=== PATIENT | female | born 1945 | race Caucasian/White ===

== ENCOUNTER → 2020-03-18 12:29 | Outpatient (CLI) | payer MEDICARE, SELFPAY ==
--- NOTE | ~2020-03-18 | XR_ITS ---
XR finger 1st RT min 2V DATE: 03/18/2020 12:39 INDICATION: Pain TECHNIQUE: 3 views COMPARISON: None FINDINGS: There is osteoarthritic change at the first carpometacarpal, metacarpophalangeal and interp halangeal joints. No fracture, dislocation, periosteal reaction or bone destruction. IMPRESSION: Polyarticular osteoarthritis Reviewed, dictated and finalized at location A.
== END ==
PROVIDERS: PCP Nurse Practitioner; Visit Provider Nurse Practitioner
DX: M79.646 Pain in unspecified finger(s) (principal); M19.041 Primary osteoarthritis, right hand
CPT/HCPCS: 73140

== ENCOUNTER → 2021-02-01 13:26 | Outpatient (CLI) | payer MEDICARE, SELFPAY ==
--- NOTE | ~2021-02-01 | MM_ITS ---
EXAMINATION: MM screening [facility] BI w trisha HISTORY: Screening mammogram TECHNIQUE: Craniocaudal and mediolateral oblique 3-D tomosynthesis images were obtained and synthetic 2-D images were generated. CAD analysis was submitted and interpreted. COMPARISON: No prior mammogram is available for comparison at this institution. BREAST PARENCHYMAL COMPOSITION: There are scattered areas of fibroglandular density. FINDINGS: Stable upper outer quadrant posterior right intramammary lymph node and bilateral axillary tail small benign-appearing lymph nodes. Scattered benign calcifications. There is no evidence of gonzalez picious mass, calcification, or architectural distortion to suggest malignancy in either breast. Ther e has been no suspicious interval change. IMPRESSION: 1. No mammographic evidence of malignancy. 2. Recommend routine screening mammography in one year. BI-RADS Category 2: Benign finding(s). Reviewed, dictated and finalized at location A.
== END ==
PROVIDERS: PCP Nurse Practitioner; Visit Provider Nurse Practitioner
DX: Z12.31 Encounter for screening mammogram for malignant neoplasm of breast (principal)
CPT/HCPCS: 77063; 77067

== ENCOUNTER → 2021-04-26 12:16 | Outpatient (CLI) | payer MEDICARE, SELFPAY ==
--- NOTE | ~2021-04-26 | DEXA_ITS ---
Bone Density Report Name: Demetria Burt I Age: 75 Sex: Female Ethnicity: White Date of : 1945 Indication: postmenopausal; screening for osteoporosis; hysterectomy; Referring Provider: Katia Medina Study: Bone densitometry was performed. Exam Date: April 26, 2021 Accession number: [id number] Bone Density: Region BMD T-score Z-score Classification AP Spine (L1-L4) 1.187 1.3 3.6 Normal Femoral Neck (Left) 0.805 -0.4 1.6 Normal Total Hip (Left) 1.117 1.4 3.1 Normal Femoral Neck (Right) 0.822 -0.2 1.8 Normal Total Hip (Right) 0.975 0.3 2.0 Normal Total Hip Mean 1.046 0.9 2.6 Normal World Health Organization criteria for BMD impression classify patients as: Normal (T-score at or above -1.0), Osteopenia (T-score between -1.0 and -2.5), or Osteoporosis (T-score at or below -2.5). 10-year Fracture Risk: FRAX not reported because: All T-scores for Spine Total, Hip Total, Femoral Neck at or above -1.0 Previous Exams: Region Exam Age BMD T-score BMD Change BMD Change Date g/cm2 vs Baseline vs Previous AP Spine(L1-L4) 04/26/2021 75 1.187 1.3 0.018 0.052* 07/26/2014 68 1.135 0.8 -0.034* -0.029* 07/25/2012 66 1.164 1.1 -0.005 0.116* 06/07/2010 64 1.048 0.0 -0.121* 0.002 06/04/2008 62 1.046 0.0 -0.123* -0.123* 01/19/2005 59 1.169 1.1 Total Hip(Left) 04/26/2021 75 1.117 1.4 0.033* 0.047* 03/04/2019 73 1.070 1.0 -0.014 -0.035* 07/26/2014 68 1.105 1.3 0.021 0.038* 07/25/2012 66 1.067 1.0 -0.017 0.066* 06/07/2010 64 1.001 0.5 -0.083* -0.039* 06/04/2008 62 1.040 0.8 -0.044* -0.044* 01/19/2005 59 1.084 1.2 Total Hip(Right) 04/26/2021 75 0.975 0.3 -0.086* -0.021 03/04/2019 73 0.996 0.4 -0.065* -0.056* 07/26/2014 68 1.051 0.9 -0.009 0.064* 07/25/2012 66 0.988 0.4 -0.073* 0.026 06/07/2010 64 0.962 0.2 -0.099* -0.054* 06/04/2008 62 1.016 0.6 -0.044* -0.044* 01/19/2005 59 1.060 1.0 *Denotes significance at 95% confidence level, LSC for AP Spine = 0.022 g/cm2, LSC for Total Hip = 0.027 g/cm2 Clinical Information Provided by Patient: Has used the following medications: Vitamin D Has the following medical cond
== END ==
PROVIDERS: PCP Nurse Practitioner; Visit Provider Nurse Practitioner
DX: Z78.0 Asymptomatic menopausal state (principal)
CPT/HCPCS: 77080

== ENCOUNTER 2022-04-04 08:59 | Outpatient (CLI) | payer MEDICARE, SELFPAY ==
--- NOTE | ~2022-04-04 | MM_ITS ---
EXAMINATION: MM screening [facility] BI w trisha HISTORY: Screening TECHNIQUE: Craniocaudal and mediolateral oblique 3-D tomosynthesis images were obtained and synthetic 2-D images were generated. CAD analysis was submitted and interpreted. COMPARISON: Comparison to multiple prior studies sequentially, with oldest reviewed study dated 07/12. BREAST PARENCHYMAL COMPOSITION: There are scattered areas of fibroglandular density. FINDINGS: There is no evidence of suspicious mass, calcification, or architectural distortion to sugg est malignancy in either breast. There has been no suspicious interval change. IMPRESSION: 1. No mammographic evidence of malignancy. 2. Recommend routine screening mammography in one year. BI-RADS Category 1: Negative Reviewed, dictated and finalized at location A.
== END 2022-04-04 09:00 | disposition home or self-care (01) ==
PROVIDERS: PCP Nurse Practitioner; Visit Provider Nurse Practitioner
DX: Z12.31 Encounter for screening mammogram for malignant neoplasm of breast (principal)
CPT/HCPCS: 77063; 77067

== ENCOUNTER 2023-02-20 13:51 | Outpatient (CLI) | payer MEDICARE, SELFPAY ==
[2023-02-20 19:17] LABS: Thyroid Stimulating Hormone Reflex 0.034 uIU/mL (0.465-4.68)
[2023-02-20 19:42] LABS: Free T4 Free Thyroxine Reflex 1.03 ng/dL (0.78-2.19)
== END 2023-02-20 13:52 | disposition home or self-care (01) ==
LOC: ANHGOSHLAB 13:56
PROVIDERS: PCP Family Medicine; Visit Provider Nurse Practitioner Family
DX: R53.83 Other fatigue (principal)
CPT/HCPCS: 36415; 84439; 84443; 84480

== ENCOUNTER 2023-04-10 08:13 | Outpatient (CLI) | payer MEDICARE, SELFPAY ==
--- NOTE | ~2023-04-10 | MM_ITS ---
EXAMINATION: MM screening [facility] BI w trisha HISTORY: Screening mammogram, family history of breast cancer in her sister. TECHNIQUE: Craniocaudal and mediolateral oblique 3-D tomosynthesis images were obtained and synthetic 2-D images were generated. CAD analysis was submitted and interpreted. COMPARISON: 04/04/2022, 02/01/2021, 03/04/2019 BREAST PARENCHYMAL COMPOSITION: There are scattered areas of fibroglandular density. FINDINGS: A stable mass in the upper outer quadrant of the right breast likely reflects an intramamma ry lymph node and is considered benign given the lack of interval change. No suspicious mass, calcifi cation, or architectural distortion are identified in either breast to suggest malignancy. There has been no suspicious interval change. IMPRESSION: 1. No mammographic evidence of malignancy. 2. Recommend routine screening mammography in one year. BI-RADS Category 2: Benign finding(s). Reviewed, dictated and finalized at location A.
== END 2023-04-10 08:14 | disposition home or self-care (01) ==
LOC: ANHIMG 08:16
PROVIDERS: PCP Family Medicine; Visit Provider Nurse Practitioner Family
DX: Z12.31 Encounter for screening mammogram for malignant neoplasm of breast (principal)
CPT/HCPCS: 77063; 77067

== ENCOUNTER 2023-04-24 14:29 | Outpatient (CLI) | payer MEDICARE, SELFPAY ==
--- NOTE | ~2023-04-24 | US_ITS ---
EXAMINATION: US thyroid DATE: 04/24/2023 15:11 INDICATION: Type 2 diabetes mellitus without complications. TECHNIQUE: Multiple ultrasound images of the thyroid were obtained. COMPARISON: None. FINDINGS: The right thyroid lobe measures 4.1 x 1.6 x 2.0 cm. The left thyroid lobe measures 4.0 x 2.4 x 1.8 c m. In the right thyroid lobe, there is an 11 mm solid, hypoechoic, wider than tall nodule with irreg ular margin without echogenic foci (TI-RADS TR4). In the right lower lobe, there is a 9 mm solid, hyp oechoic, wider than tall nodule with smooth margin without echogenic foci (TR4). In the left thyroid lobe, there is a 17 mm solid, hypoechoic, wider than tall nodule with smooth margin without echogenic foci (TR4). There are multiple subcentimeter nodules in the thyroid. IMPRESSION: 1. Multinodular goiter. Ultrasound-guided fine-needle aspiration of the 17 mm left thyroid nodule is recommended. Reviewed, dictated and finalized at location A. IMPRESSION: 1. Multinodular goiter. Ultrasound-guided fine-needle aspiration of the 17 mm l eft thyroid nodule is recommended.
== END 2023-04-24 14:30 | disposition home or self-care (01) ==
LOC: ANHIMG 14:33
PROVIDERS: PCP Family Medicine; Visit Provider Internal Medicine
DX: E11.9 Type 2 diabetes mellitus without complications (principal); E04.2 Nontoxic multinodular goiter
CPT/HCPCS: 76536

== ENCOUNTER 2023-05-08 12:37 | Outpatient (CLI) | payer MEDICARE, SELFPAY ==
--- NOTE | ~2023-05-08 | US_ITS ---
EXAMINATION: US FNA w image guidance, US FNA additional DATE: 05/08/2023 13:54 INDICATION: Bilateral thyroid nodules TECHNIQUE: A time-out was performed to verify the patient's name, date of , and procedure to be performed . The procedure and its benefits and risks were discussed with the patient. Risks specifically discus sed included bleeding and infection. The patient understood the risks and agreed to proceed. The neck was prepped and draped in the usual sterile manner. A total of 9 mL 1% lidocaine was used for local anesthesia. Attention was first turned to the left thyroid nodule. 5 passes were made with a 25G need le into the lesion. Sagittally 5 passes were made with a 20 5G needle into the right thyroid nodule. Appropriate needle location was documented with continuous sonographic guidance. Sterile bandages wer e applied. There were no immediate complications. FINDINGS: Grayscale ultrasound images demonstrate biopsy needles advanced into first the 2.0 cm TI RADS 4 nodul e of concern at the deep lower pole of the left thyroid. Subsequent images demonstrate biopsy needles advanced into the smaller 1.1 cm TI RADS 4 nodule in the deep lower pole of the right thyroid. IMPRESSION: 1. Successful ultrasound-guided fine needle aspiration of a 2.0 cm TI RADS 4 nodule at the inferior left thyroid. 2. Successful ultrasound-guided fine-needle aspiration of a 1.1 cm TI RADS 4 nodule at the inferior r ight thyroid. Reviewed, dictated and finalized at location A. IMPRESSION: 1. Successful ultrasound-guided fine needle aspiration of a 2.0 cm TI RADS 4 n odule at the inferior left thyroid. 2. Successful ultrasound-guided fine-needle aspiration of a 1.1 cm TI RADS 4 no dule at the inferior right thyroid.
== END 2023-05-08 12:38 | disposition home or self-care (01) ==
PROVIDERS: PCP Family Medicine; Visit Provider Internal Medicine
DX: E04.2 Nontoxic multinodular goiter (principal)
CPT/HCPCS: 10005; 10006; 88173; 88305

== ENCOUNTER 2023-07-24 10:45 | Outpatient (RCR) | payer MEDICARE, SELFPAY ==
[2023-05-15 09:27] VITALS: BMI 41.5
[2023-05-15 09:35] VITALS: BMI 41.5
[2023-06-05 09:40] VITALS: BMI 41.1
[2023-07-24 10:45] VITALS: BMI 40.3
[2023-07-24 10:51] VITALS: BMI 40.3
== END 2023-07-29 09:39 | disposition home or self-care (01) ==
LOC: ANHDMC 10:45
PROVIDERS: PCP Family Medicine; Visit Provider Internal Medicine
DX: E11.9 Type 2 diabetes mellitus without complications (principal); Z71.3 Dietary counseling and surveillance; Z71.89 Other specified counseling
CPT/HCPCS: 97802; 97803; G0108; G0109

== ENCOUNTER 2023-08-13 07:54 | Outpatient (CLI) | payer MEDICARE, SELFPAY ==
--- NOTE | ~2023-08-13 | DEXA_ITS ---
Bone Density Report Name: ANITRA POLANCO I Age: 78 Sex: Female Ethnicity: White Date of : 1945 Indication: postmenopausal; screening for osteoporosis; height loss; hysterectomy; Referring Provider: GRIFFIN CRUZ Study: Bone densitometry was performed. Exam Date: August 13, 2023 Accession number: [id number] Bone Density: Region BMD T-score Z-score Classification AP Spine(L1-L4) 1.096 0.4 2.9 Normal Femoral Neck (Left) 0.833 -0.1 2.0 Normal Total Hip (Left) 0.971 0.2 2.1 Normal Femoral Neck (Right) 0.806 -0.4 1.7 Normal Total Hip (Right) 0.897 -0.4 1.5 Normal Total Hip Mean 0.934 -0.1 1.8 Normal World Health Organization criteria for BMD impression classify patients as: Normal (T-score at or above -1.0), Osteopenia (T-score between -1.0 and -2.5), or Osteoporosis (T-score at or below -2.5). 10-year Fracture Risk: FRAX not reported because: All T-scores for Spine Total, Hip Total, Femoral Neck at or above -1.0 Clinical Information Provided by Patient: Has used the following medications: Vitamin D Has the following medical conditions: Hysterectomy Patient maximum height was 63.5 Menopause Age: 40 No regular weight bearing exercise Drinks caffeinated beverages Onset of menses at age 13 Number of children 0 Impression: The patient has normal bone mass. Discussion: BONE DENSITY IS ABOVE THE MINIMUM DESIRABLE LEVEL AT ALL SKELETAL SITES TESTED. This patient?s bone mineral density is above the minimum desirable level (T-score -1.0 or better) at all sites measured. The patient should follow a healthful lifestyle (good nutrition with adequate calcium and vitamin D, and appropriate weight-bearing exercise). Follow-Up: Consider repeating this study in 5 years or sooner if there is some new clinical indication. Reported by: [facility] on 08/13/2023 8:21:00 AM. Reviewed, dictated and finalized at location AJulien SCALES
== END 2023-08-13 07:55 | disposition home or self-care (01) ==
PROVIDERS: PCP Family Medicine; Visit Provider Nurse Practitioner Family
DX: Z78.0 Asymptomatic menopausal state (principal)
CPT/HCPCS: 77080

== ENCOUNTER 2023-10-17 09:30 | Outpatient (RCR) | payer MEDICARE, SELFPAY ==
[2023-08-27 08:25] VITALS: BMI 39.9
[2023-08-27 08:30] VITALS: BMI 39.9
[2023-10-17 14:42] VITALS: BMI 39.9; BMI 40.6
== END 2023-11-11 10:48 | disposition home or self-care (01) ==
LOC: ANHDMC 09:30
PROVIDERS: PCP Family Medicine; Visit Provider Internal Medicine
DX: E11.65 Type 2 diabetes mellitus with hyperglycemia (principal); Z71.3 Dietary counseling and surveillance; Z71.89 Other specified counseling
CPT/HCPCS: 97803; G0109

== ENCOUNTER 2023-11-20 11:45 | Outpatient (CLI) | payer MEDICARE, SELFPAY ==
--- NOTE | ~2023-11-20 | US_ITS ---
Renal-Bladder ultrasound Clinical History: Chronic kidney disease Technique: Real-time sonographic imaging of the kidneys and urinary bladder was performed. Findings: The right kidney measures 10.4 cm in length and the left kidney measures 11.8 cm. There is no hydronephrosis or renal calculus identified. Renal cortical echogenicity is within normal limits. No renal mass lesion is identified. The urinary bladder is moderately distended at the time of this exam. No intraluminal echoes are iden tified. No abnormal wall thickening is seen. Impression: Unremarkable ultrasound of the kidneys and urinary bladder. Reviewed, dictated and finalized at location M. Impression: Unremarkable ultrasound of the kidneys and urinary bladder.
== END 2023-11-20 11:46 ==
LOC: MICIMG 11:46
PROVIDERS: PCP Internal Medicine Nephrology; Visit Provider Internal Medicine Nephrology
DX: N18.31 Chronic kidney disease, stage 3a (principal)
CPT/HCPCS: 76775

== ENCOUNTER 2024-01-30 14:41 | Outpatient (RCR) | payer MEDICARE, SELFPAY | END 2024-04-24 08:51 | disposition home or self-care (01) | LOC: ANHDMC 14:41 | PROVIDERS: PCP Internal Medicine Nephrology; Visit Provider Internal Medicine | DX: E11.9 Type 2 diabetes mellitus without complications (principal); Z71.89 Other specified counseling | CPT/HCPCS: G0109 ==

== ENCOUNTER 2024-12-23 10:58 | Outpatient (CLI) | payer MEDICARE, SELFPAY ==
--- NOTE | ~2024-12-23 | US_ITS ---
Thyroid ultrasound. Clinical History: Multinodular goiter COMPARISON: 04/24/2023 Findings: Real-time sonography of the thyroid gland was performed. The right lobe measures 4.1 x 2.1 x 1.8 cm. The left lobe measures 4.1 x 2.2 x 1.5 cm. The isthmus is 4 mm in AP diameter. There is a 6 mm hypoechoic nodule at the right mid to lower pole. There is an additional 5 mm hypoech oic nodule at the right mid to lower pole. There is an additional 7 mm hypoechoic nodule at the right lower pole. There is an additional 9 mm hypoechoic nodule at the right lower pole posteriorly. There is a 1.6 cm hypoechoic solid nodule at the posterior left mid to lower pole. There is an additi onal 6 mm hypoechoic nodule at the left lower pole. There are multiple additional smaller subcentimet er left thyroid lobe nodules. Impression: Multiple bilateral thyroid nodules, overall similar to prior exam. Reviewed, dictated and finalized at [facility]. Impression: Multiple bilateral thyroid nodules, overall similar to prior exam.
== END 2024-12-23 10:59 | disposition home or self-care (01) ==
LOC: MICIMG 10:59
PROVIDERS: PCP Family Medicine; Visit Provider Internal Medicine
DX: E04.2 Nontoxic multinodular goiter (principal); E11.9 Type 2 diabetes mellitus without complications; E78.5 Hyperlipidemia, unspecified
CPT/HCPCS: 76536

== ENCOUNTER 2025-02-01 07:56 | Outpatient (CLI) | payer MEDICARE, SELFPAY ==
--- NOTE | ~2025-02-01 | MM_ITS ---
EXAMINATION: MM screening [facility] BI w trisha HISTORY: Screening mammogram TECHNIQUE: Craniocaudal and mediolateral oblique 3-D tomosynthesis images were obtained and synthetic 2-D images were generated. CAD analysis was submitted and interpreted. COMPARISON: 04/10/2023, 04/04/2022, 02/01/2021 BREAST PARENCHYMAL COMPOSITION:Not Dense. There are scattered areas of fibroglandular density. FINDINGS: Stable upper, outer right breast mass. Stable bilateral benign calcifications. No suspiciou s mass, calcification, or architectural distortion are identified in either breast to suggest maligna ncy. There has been no suspicious interval change. IMPRESSION: No mammographic evidence of malignancy. Recommend routine screening mammography in one year. BI-RADS Category 2: Benign finding(s). Reviewed, dictated and finalized at [facility].
== END 2025-02-01 07:57 | disposition home or self-care (01) ==
PROVIDERS: PCP Family Medicine; Visit Provider Family Medicine
DX: Z12.31 Encounter for screening mammogram for malignant neoplasm of breast (principal)
CPT/HCPCS: 77063; 77067

== ENCOUNTER 2025-03-30 00:46 | Day surgery (SDC) | payer MEDICARE, SELFPAY ==
[2025-03-17 08:54] VITALS: BMI 36.8
--- OUTSIDE RECORDS SUMMARY | 2025-03-30 00:49 | XMS_ITS | Encounter Summary ---
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 Name Role Phone Unavailable Primary Care Provider Unavailabl e Encounter Details Date Type Department Care Team (Late st Contact Info) Description 01/16/2023 Lab Requisition [facility] - DermPath Lab [address] [place] [id number] Zina Latham DO [address] [address] [place] [address] Social History Tobacco Use Types Packs/Day Years Used Date Smoking Tobacco: Never Assessed Comments Unknown Sex and Gender Information Value Date Recorded Sex Assigned at Not on file 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 [employer] Gender Identity Not on file Sexual Orientation Not on file documented as of this encounter Plan of Treatment Not on file documented as of this encounter Procedures Procedure Name Priority Date/Time Associated Diagnosis Comments DERMATOPATHOLOGY Routine 01/16/2023 9:55 AM CDT documented in this encounter Results * DERMATOPATHOLOGY (01/16/2023 9:55 AM CDT) Case Report Dermatopathology Report Case: [id number] Authorizing Provider: Zina Latham DO Collected: 01/16/2023 09:55 AM Ordering Location: [facility] DermPath Lab Received: 01/16/2023 03:22 PM Pathologist: Hilda Mccall MD Specimen: Skin, left mid arm 1:02 PM CDT DERMATOPATHOLOGY LABORATORY Final Diagnosis Specimen A. 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 The specimen consists of a shave biopsy measuring [id number]. Jar 0. 3 1:02 PM CDT DERMATOPATHOLOGY LABORATORY Microscopic Description Specimen A. SKIN, left mid arm: Sections show compact orthokeratosis with acanthosis composed of slightly larger keratinocytes with basal layer hyperpigmentation. There is a lymphohistiocytic infiltrate within the dermis. 3 1:02 PM CDT DERMATOPATHOLOGY LABORATORY Disclaimer An external and internal positive and negative controls are appropriate for the histochemical, immunohistochemical and immunofluorescence stain(s) in this case (if any), except where stated explicitly. The performance characteristics of the stain(s) cited in this report were developed and its performance characteristic determined by the Dermatopathology Laboratory at [facility], directed by Dr. Sindy Damico. These tests need not be, and therefore are not, approved by the [place] Food and Drug Administration. The tests are used for clinical purposes. Billing Codes Specimen Charges Stain Charges 67089 1 3 1:02 PM CDT DERMATOPATHOLOGY LABORATORY Embedded Images 3 1:02 PM CDT DERMATOPATHOLOGY LABORATORY Pathology/Cytolo gy TISSUE SPECIMEN FROM SKIN / Unknown 01/16/2023 9:55 AM CDT 01/16/2023 3:22 PM CDT us Zina Latham DO LAB - PATHOLOGY/CYTOLOGY ORDERABLES Final Result DERMATOPATHOLOGY LABORATORY [facility] - Department of Dermatology [address] [place] [address], [facility] [phone] documented in this encounter Visit Diagnoses Not on filedocumented in this encounter
--- OUTSIDE RECORDS SUMMARY | 2025-03-30 00:49 | XMS_ITS | Clinical Summary ---
Author Organization [facility] Address [address] [place] [address] Care Team Providers Care Ice Guard Tester Name Role Phone Elliot Chino MD Primary Care Provider Westley Fairbanks MD Unavailable [phone] Allergies Active Allergy Reactions Criticality Noted Date Comments Meperidine Unknown 07/24/2013 headaches Hydroxychloroquine Unknown 01/21/2017 rash Medications multivitamin tabletIndicati ons:Vitamin Deficiency Prevention Take 1 tablet by mouth every morning Active pantoprazole DR (PROTONIX) 40 mg EC tabletIndicati ons:Stress Ulcer Prophylaxis Take 1 tablet (40 mg total) by mouth every morning 3 11/08/19 19 Active cyanocobalamin , vitamin B-12, (VITAMIN B-12 ORAL) Take 1 tablet by mouth every morning Active ascorbic acid/collagen hydr (COLLAGEN PLUS VITAMIN C ORAL) Take 1 tablet by mouth every morning Active zinc 50 mg tablet Take by mouth daily Active ketoconazole (NIZORAL) 2 % cream 01/17/20 23 Active OneTouch Delica Plus Lancet 33 gauge misc 06/01/20 23 Active OneTouch Verio test strips strip 06/02/20 23 Active lisinopriL (PRINIVIL,ZEST RIL) 20 mg tablet Take 1 tablet (20 mg total) by mouth daily 07/08/20 24 Active atorvastatin (LIPITOR) 20 mg tablet Take 1 tablet (20 mg total) by mouth daily 09/03/19 25 Active indapamide (LOZOL) 1.25 mg tablet Take 1 tablet (1.25 mg total) by mouth daily 08/27/19 25 Active Jardiance 10 mg tablet 09/03/19 25 Active oxyBUTYnin XL (DITROPAN-XL) 10 mg 24 hr tablet 07/29/20 24 Active Mounjaro 2.5 mg/0.5 mL pen injector injection ADMINISTER 2.5 MG UNDER THE SKIN WEEKLY 02/19/20 25 Active traZODone (DESYREL) 50 mg tablet 01/16/20 25 Active ascorbic acid, vitamin C, 250 mg tablet,chewabl e 11/30/19 25 Active eszopiclone (Lunesta) 1 mg tabletIndicati ons:Insomnia Take 1 tablet (1 mg total) by mouth nightly Take immediately before bedtime 30 tablet 1 03/12/20 25 Active Trulicity 1.5 mg/0.5 mL pen injector 09/03/19 25 025 Discontinued eszopiclone (Lunesta) 1 mg tabletIndicati ons:Insomnia Take 2 tablets (2 mg total) by mouth nightly Take immediately before bedtime 60 tablet 1 12/30/19 25 025 Discontinued(R eorder) eszopiclone (Lunesta) 1 mg tabletIndicati ons:Insomnia Take 2 tablets (2 mg total) by mouth nightly Take immediately before bedtime 60 tablet 1 03/10/20 25 025 Discontinued(R eorder) Active Problems Problem Noted Date Diagnosed Date Refraction disorder 11/13/2024 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 09/11/2024 Assessment & Plan (10/23/2024 11:44 AM CDT): Signs improved on Xdemvy Complete weekly 6 of treatment Cont lid wipes daily - or OK to use cloth and baby shampoo PFATs during the day q2 hr Prefers no ointment, recommend TheraTears gel night time drops Assessment & Plan (09/11/2024 10:24 AM PASTER HAT LINING): Cont gentle lid wipes daily Stop moxi Severe obesity 05/06/2024 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 Assessment & Plan (11/13/2024 11:15 AM CDT): S/sx improved, tolerating doxy, cont 50 mg BID another 3-4 weeks then stop Cont lid wipes and gel tears as needed Assessment & Plan (06/24/2024 10:43 AM PASTER HAT LINING): Cont doxy 50 mg BID Stop tdex Start moxi BID OU Assessment & Plan (04/22/2024 1:06 PM CDT): Increase doxy to 100 mg BID Start tdex to the lid margins BID Stop emycinung PFATs QID+ Visual discomfort of both eyes 06/28/2023 Type 2 diabetes mellitus without complication Overview (01/29/2023): Diagnosed 2- on po meds Assessment & Plan (01/29/2023 2:54 PM CDT): Diagnosed 2/- on po meds Needs yearly exam. No acitve diabetes mellitus (DM) changes in retina. 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 ATs as needed. Pt ed re: risks for RCE. 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 Pseudophakia of both eyes 01/03/2018 Overview (03/27/2022): 04/24/17- phaco/ intraocular lens (IOL) left eye (OS)- HKaracal/ PCBOO +22.5D 01/15/2022- Extraction Cataract - Phacoemulsification And Lens Implant Right Eye - Right Aim: plano Assessment & Plan (11/13/2024 11:16 AM CDT): Release updated glasses Rx Assessment & Plan (06/28/2023 4:00 PM PASTER HAT LINING): Fairly significant change from hab Rx, pt appreciates near vision (NV) with trial frame. Release updated glasses Rx Assessment & Plan (01/29/2023 2:12 PM CDT): 04/24/17- phaco/ intraocular lens (IOL) left eye (OS)- HKaracal/ PCBOO +22.5D 01/15/2022- Extraction Cataract - Phacoemulsification And Lens Implant Right Eye - Right Aim: plano Pt feels no worse, but no better than presurgery right eye (OD). Healing well with normal Macula. No change in glasses preferred by patient at this time. Off medicated drops and restarted on regular AFTS regimen. Reassure that all looks healed. Will monitor. Recheck 6 months and recheck MRx (n/c) Assessment & Plan (03/27/2022 12:39 PM CDT): 04/24/17- phaco/ intraocular lens (IOL) left eye (OS)- HKaracal/ PCBOO +22.5D 01/15/2022- Extraction Cataract - Phacoemulsification And Lens Implant Right Eye - Right Aim: plano Pt feels no worse, but no better than presurgery right eye (OD). Healing well with normal Macula. No change in glasses preferred by patient at this time. Off medicated drops and restarted on regular AFTS regimen. Reassure that all looks healed. Will monitor. Recheck 6 months and recheck MRx (n/c) Assessment & Plan (01/30/2022 12:20 PM CDT): Status-post Extraction Cataract - Phacoemulsification And Lens Implant Right Eye - Right 01/15/2022 Best corrected vision is much improved and the patient is pleased with results. The eye is well-healed with no evidence of infection. Plan discontinue ocuflox and prednisione QID. Unclear exactly why right eye (OD) is still blurred but suspect retinal etiology. Will recheck HRT mac OCT at next visit. Also recheck MRx Assessment & Plan (01/15/2022 1:23 PM CDT): Post op day 1s/p Extraction Cataract - Phacoemulsification And Lens Implant Right Eye - Right 01/15/2022 No complaints; Doing well Use ofloxacin and prednisolone to operative eye QID Eye shield at bedtime, glasses or shield during the day PO instructions given RTC 1-2 weeks, earlier if any complaints or concerns Assessment & Plan (11/14/2021 3:43 PM CDT): 04/24/17- phaco/ intraocular lens (IOL) left eye (OS)- HKaracal/ PCBOO +22.5D Implants in good position. Vision stable Assessment & Plan (02/14/2020 7:35 PM CDT): Pt ed on intraocular lens (IOL) status. Follow. Macular pseudohole of left eye 01/21/2017 Assessment & Plan (01/29/2023 2:52 PM CDT): Flattend contour left eye (OS)>right eye (OD) on mac OCT 03/2022 No sig EMR or hole or cystoid macular edema (CME) noted both eyes (OU). Assessment & Plan (03/27/2022 12:40 PM CDT): Mac PC today with sl flattened contour both eyes (OU) but no epiretinal membrane (ERM) or hole or cystoid macular edema (CME) both eyes (OU). Assessment & Plan (01/30/2022 12:21 PM CDT): With question of right eye (OD) issues in the past also, although preop mac OCT looked good. Will recheck mac OCT with next visit. Assessment & Plan (11/14/2021 3:50 PM CDT): Plan macular OCT preoperatively. Assessment & Plan (02/14/2020 7:35 PM CDT): Stable- pt ed. Monitor. Dermatochalasis of both upper eyelids 01/16/2016 Suspected glaucoma of both eyes 01/16/2016 Assessment & Plan (01/30/2024 4:21 PM CDT): Thinner inferior temporal rim Assessment & Plan (01/29/2023 2:12 PM CDT): Never on drops prev. Noted in past? Assessment & Plan (03/27/2022 12:41 PM CDT): Never on drops prev. Noted in past? 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 Unclear if visually sig.Age-related corneal changes left eye (OS). Unclear if visually sig. Assessment & Plan (11/14/2021 3:50 PM CDT): Age-related corneal changes left eye (OS). Unclear if visually sig. Assessment & Plan (02/14/2020 7:35 PM CDT): Stable. Monitor. Benign colonic polyp 12/16/2014 Gastroesophageal reflux disease 12/16/2014 Dry eye syndrome of both eyes 12/06/2014 Assessment & Plan (09/11/2024 10:22 AM PASTER HAT LINING): PFATs QID+ Assessment & Plan (06/24/2024 10:44 AM PASTER HAT LINING): ATs prn Assessment & Plan (01/30/2024 1:17 PM CDT): Rec Retaine pfats QID+ Assessment & Plan (08/17/2020 3:49 PM PASTER HAT LINING): Poor tear film and mild exophoria causing near strain/fatigue and blur when on computer +spending several hours on computer for work Plan: -take breaks every 20 minutes to look in distance/blink -start art tears QID both eyes (OU) to improve tear film -rx SV computer rx with 4BI prism split; cont with hb PAL for all other tasks Assessment & Plan (02/14/2020 7:34 PM CDT): Cont ATs (Blink, Soothe) as needed both eyes (OU). Resolved Problems Problem Noted Date Diagnosed Date Resolved Date Combined forms of age-relate d cataract of right eye 01/20/2018 01/15/2022 Assessment & Plan (11/14/2021 3:52 PM CDT): Patient complains of significant symptoms and problems with activities of daily living due to visually significant disease. R/B/A of cataract surgery discussed with the patient including bleeding, infection, chronic inflammation, need for glasses and/or second surgery, loss of vision, loss of eye, and even very rarely, . Patient's questions were answered and wants to proceed with cataract extraction with intraocular lens implant. Pamphlet given and plans were made to schedule this elective surgery. Recommend phaco/intraocular lens (IOL) OD. Pre-op drops: ofloxacin. Post op drops: Prednisiolone Pre-op pre-operative testing needed: Ascan/automated topography/manual or auto K's. Aim: plano Notes: 15/None Macular OCT with preop testing Assessment & Plan (02/14/2020 7:34 PM CDT): Good aided best-corrected visual acuity (BVA). Recommend updating glasses. Defer cataract extraction (CE) until signs/sx indicate. Encounters Date Type Department Care Team Description 03/11/2025 Telephone [facility] [place] [place] [facility] [address] [place] [address] [address] [place] [address] Yajaira Leon MA 03/10/2025 11:15 AM CDT Office Visit [facility] at [address] [place] [address] Fely Hernandez MD Insomnia, unspecified type (Primary Dx); Obstructive sleep apnea; Hypersomnia; Obesity, unspecified class, unspecified obesity type, unspecified whether serious comorbidity present 12/29/2024 11:30 AM CDT Office Visit [facility] at [address] [place] [address] Fely Hernandez MD Insomnia, unspecified type (Primary Dx); Hypersomnia; Obstructive sleep apnea; Obesity, unspecified class, unspecified obesity type, unspecified whether serious comorbidity present from Last 3 Months Immunizations Immunization Administration Dates Next Due Influenza, Quad, Adjuvantate d, Intramuscular 06/28/2021 Influenza, Quadrivalent, Cordelia l Culture-based MDCK, Antibiotic Free, Intramuscular 05/25/2020 Influenza, Trivalent, High D ose, Split, Preservative Free, Intramuscular 05/02/2019,05/26/2018,05/17/2015 Influenza, Trivalent, IM (MDV) 05/05/2014,2012 Influenza, Trivalent, Preser vative Free, Intramuscular 05/04/2019,05/07/2016 Pneumococcal Conjugate PCV 13 05/26/2018, 017 Tdap 08/30/2016 Surgical History Surgery Date Site/Laterality Comments CATARACT EXTRACTION W/ INTRAOCULAR LENS IMPLANT 04/24/2017 Left KNEE SURGERY unsure of knee and unsure of date TARSAL TUNNEL RELEASE Left RADIAL TUNNEL RELEASE- unsure of date Medical History Medical History Date Comments PONV (postoperative nausea and vomiting) GERD (gastroesophageal reflux disease) HL (hearing loss) Social History Tobacco Use Types Packs/Day Years Used Date Smoking Tobacco: Never Smokeless Tobacco: Never Tobacco Cessation:Counseling Given: Not Answered AUDIT-C Answer Date Recorded Q1: How often do you have a drink containing alc ohol? Monthly or less 01/15/2022 Q2: How many drinks containi ng alcohol do you have on a typical day when you are drinking? 3 or 4 01/15/2022 Frequency of Binge Drinking Not on file 01/2022 Comments No Sex and Gender Information Value Date Recorded Sex Assigned at Not on file Legal Sex Female 2:01 PM PASTER HAT LINING Gender Identity Female 02/01/2020 1:01 PM CDT Sexual Orientation Straight 12/09/2021 1: 51 PM CDT Obstetrics History Last Filed Vital Signs Vital Sign Reading Time Taken Comments Blood Pressure 115/74 03/10/2025 11:06 AM CDT Pulse 63 03/10/2025 11:06 AM CDT Temperature 36.4 C (97.5 F) 01/15/2022 12:00 PM CDT Respiratory Rate 18 05/06/2024 11:23 AM CDT Oxygen Saturation 96% 03/10/2025 11:06 AM CDT Inhaled Oxygen Concentration - - Weight 94.4 kg (208 lb 3.2 oz) 03/10/2025 11:06 AM CDT Height 157.5 cm (5' 2.01) 03/10/2025 11:06 AM C DT Body Mass Index 38.07 03/10/2025 11:06 AM CDT Plan of Treatment Health Maintenance Due Date Last Done Comments Albumin Creatinine Ratio, Urine 1947 Depression Screening 1947 Hemoglobin A1C 1947 Hepatitis C Screening 1947 Osteoporosis Screening-Bone Density Scan 1947 eGFR 1947 Foot Exam 1947 Lipid Panel 1947 Hepatitis B Screening 1965 Zoster Vaccine (1 of 2) 1997 Well Visit 65+ 2012 Pneumococcal vaccine 65+ (2 of 2 - PPSV23, PCV20, or PCV21) 07/21/2018 05/26/2018, 08/30/2016 Fall Risk Assessment 01/15/2023 01/15/2022 Covid-19 Vaccine (4 - 2023-2 5 season) 2024 06/07/2021, 10/26/2020, 10/05/2020 Dilated Eye Exam 01/29/2025 01/30/2024, , 01/30/2022, Additional history exists Influenza Vaccine (#1) 2025 , 05/25/2020, 05/04/2019, Additional history exists DTaP/Tdap/Td Vaccine (2 - Td or Tdap) 08/30/2026 08/30/2016 Colon Cancer Screening-CT Colonography Discontinued 03/23/2015 Colon Cancer Screening-Colonoscopy Discontinued 03/23/2015 Colon Cancer Screening-DNA Stool Discontinued 03/23/20 Colon Cancer Screening-FIT Discontinued 03/23/2015 Colon Cancer Screening-FOBT Discontinued 03/23/2015 Colon Cancer Screening-Sigmoidoscopy Discontinued 03/23/2015 Colorectal Cancer Screening Discontinued Medical Devices Implanted Type Area Hot Roller Device Identifier Shelf Expiration Date Model / Serial / Lot [employer] Lens Iol Tecty Smplcty 1-Pc Clr [place] 22.0 Diopter [id number] - [id number] - [id number] Implanted:Qty: 1 on 01/15/2022 by Taya Spear MD at [facility] Lens Right: Eye [employer] [id number] 10/29/2024 [id number] / [id number] / Procedures Procedure Name Priority Date/Time Associated Diagnosis Comments COLONOSCOPY REPORT 03/23/2015 from Last 3 Months or Most Recently Relevant to Health Maintenance Results * COLONOSCOPY REPORT (03/23/2015) Anatomical Region Laterality Modality Other Narrative 03/23/2015 Ordered by an unspecified provider. us Historical Provider GI PROCEDURE ORDERABLES F inal Result from Last 3 Months or Most Recently Relevant to Health Maintenance Insurance MEDICARE [employer] SENIOR SUPPLEMENT MEDICARE [facility] SENIOR SUPPLEMENT MEDICARE T SENIOR SUPPLEMENT Advance Directives For more information, please contact: [phone] Documents on File Type Date Recorded Patient Operator Catalyst Concentration Expl anation ADVANCE DIRECTIVE 01/18/2022 6:55 AM ADVANCE DIRECTIVE 01/18/2022 6:12 AM POWER OF HOTEL HOUSEKEEPER-MEDICAL Care Teams Ice Guard Tester Relationship Specialty Start Date End Date Elliot Chino MD PCP - General Family Practice 01/26/19 Westley Fairbanks MD [address] [address] Maintenance Controller Internal Medicine 09/11/24
--- OUTSIDE RECORDS SUMMARY | 2025-03-30 00:49 | XMS_ITS | Encounter Summary ---
Author Organization [facility] Address [address] [facility] [place] [address] Care Team Providers Care Erp Consultant Name Role Phone Unavailable Primary Care Provider Unavailabl e Encounter Details Date Type Department Care Team (Late st Contact Info) Description 11/18/2023 Lab Requisition [facility] - DermPath Lab [address] [facility] [place] [phone] Zina Latham DO [address] [facility] [address] [place] [address] Social History Tobacco Use Types Packs/Day Years Used Date Smoking Tobacco: Never Assessed Comments Unknown Sex and Gender Information Value Date Recorded Sex Assigned at Not on file 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 Gender Identity Not on file Sexual Orientation Not on file documented as of this encounter Plan of Treatment Not on file documented as of this encounter Procedures Procedure Name Priority Date/Time Associated Diagnosis Comments DERMATOPATHOLOGY Routine 11/18/2023 2:17 PM CDT documented in this encounter Results * DERMATOPATHOLOGY (11/18/2023 2:17 PM CDT) Case Report Dermatopathology Report Case: [id number] Authorizing Provider: Zina Latham DO Collected: 11/18/2023 02:17 PM Ordering Location: [facility] - Received: 11/19/2023 01:24 PM DermPath Lab Pathologist: Joleen Garcia MD Specimen: Skin, right upperback 4 3:00 PM CDT DERMATOPATHOLOGY LABORATORY Final Diagnosis Specimen A. SKIN, right upperback: 'GARG' ANGIOMA (D18.01) 4 3:00 PM CDT DERMATOPATHOLOGY LABORATORY at 1500 CDT Clinical History Angioma r/o Atypia 3:00 PM CDT DERMATOPATHOLOGY LABORATORY Gross Description Specimen A: Received is one formalin filled container labeled with the patient's name and designated right upperback. The specimen consists of a shave biopsy measuring 5x4x1 mm. Jar 0. 3:00 PM CDT DERMATOPATHOLOGY LABORATORY Microscopic Description Specimen A. SKIN, right upperback: In the dermis, there are dilated vascular spaces surrounded by thin, widely spaced endothelial cells. 3:00 PM CDT DERMATOPATHOLOGY LABORATORY Disclaimer An external and internal positive and negative controls are appropriate for the histochemical, immunohistochemical and immunofluorescence stain(s) in this case (if any), except where stated explicitly. The performance characteristics of the stain(s) cited in this report were developed and its performance characteristic determined by the Dermatopathology Laboratory at [facility], directed by Dr. Sindy Damico. These tests need not be, and therefore are not, approved by the [place] Food and Drug Administration. The tests are used for clinical purposes. Billing Codes Specimen Charges Stain Charges 55016 1 3:00 PM CDT DERMATOPATHOLOGY LABORATORY Embedded Images 3:00 PM CDT DERMATOPATHOLOGY LABORATORY Pathology/Cytolo gy TISSUE SPECIMEN FROM SKIN / Unknown 11/18/2023 2:17 PM CDT 11/19/2023 1:24 PM CDT us Zina Latham DO LAB - PATHOLOGY/CYTOLOGY ORDERABLES Final Result DERMATOPATHOLOGY LABORATORY [facility] - Department of Dermatology [address] [place] [address], [facility] [phone] documented in this encounter Visit Diagnoses Not on filedocumented in this encounter
--- OUTSIDE RECORDS SUMMARY | 2025-03-30 00:49 | XMS_ITS | Encounter Summary ---
Author Organization [facility] Address [address] [place] [address] Care Team Providers Care Racecourse Barrier Attendant Name Role Phone Unavailable Primary Care Provider Unavailabl e Encounter Details Date Type Department Care Team (Late st Contact Info) Description 10/24/2020 Lab Requisition [facility] DermPath Lab [address] [facility] [place] [address] Zina Latham DO [address] [facility] [address] [place] [address] Social History Tobacco Use Types Packs/Day Years Used Date Smoking Tobacco: Never Assessed Comments Unknown Sex and Gender Information Value Date Recorded Sex Assigned at Not on file 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 Gender Identity Not on file Sexual Orientation Not on file documented as of this encounter Plan of Treatment Not on file documented as of this encounter Procedures Procedure Name Priority Date/Time Associated Diagnosis Comments DERMATOPATHOLOGY Routine 10/24/2020 12:0 0 AM CDT documented in this encounter Results * DERMATOPATHOLOGY (10/24/2020 12:00 AM CDT) Case Report Dermatopathology Report Case: [id number] Authorizing Provider: Zina Latham DO Collected: 10/24/2020 12:00 AM Ordering Location: [facility] DermPath Lab Received: 10/24/2020 10:44 AM Pathologist: Hilda Mccall MD Specimen: Skin, right posterior upper extremity 12:27 PM CDT DERMATOPATHOLOGY LABORATORY Final Diagnosis Specimen A. 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 See [id number] 12:27 PM CDT DERMATOPATHOLOGY LABORATORY Gross Description Specimen A: Received is one formalin filled container labeled with the patient's name and designated right posterior upper extremity. The specimen consists of a non-oriented ellipse of skin measuring 08l59r2 mm. The epidermal surface estuardo a macule measuring 7x6mm. The margin is inked green. The 12 o'clock and 6 o'clock tips are submitted in cassette 1. The remainder of the ellipse is serially sectioned and submitted in cassette 2-3. Jar 0. 12:27 PM CDT DERMATOPATHOLOGY LABORATORY Microscopic Description Specimen A. SKIN, right posterior upper extremity: The epidermis shows parakeratosis, full thickness disorderly maturation of keratinocytes, and dyskeratotic cells. This lesion is not present at the margin of the specimen. There are fibroblasts and collagen bundles oriented parallel to the skin surface with elongated blood vessels, some of which are oriented perpendicular to the skin surface. 12:27 PM CDT DERMATOPATHOLOGY LABORATORY Disclaimer An external and internal positive and negative controls are appropriate for the histochemical, immunohistochemical and immunofluorescence stain(s) in this case (if any), except where stated explicitly. The performance characteristics of the stain(s) cited in this report were developed and its performance characteristic determined by the Dermatopathology Laboratory at [facility], directed by Dr. Sindy Damico. These tests need not be, and therefore are not, approved by the [place] Food and Drug Administration. The tests are used for clinical purposes. Billing Codes Specimen Charges Stain Charges 62709 1 12:27 PM CDT DERMATOPATHOLOGY LABORATORY Embedded Images 12:27 PM CDT DERMATOPATHOLOGY LABORATORY Pathology/Cytolog y TISSUE SPECIMEN FROM SKIN / Unknown 10/24/2020 10/24/2020 10:44 AM CDT us Zina Latham DO LAB - PATHOLOGY/CYTOLOGY ORDERABLES Final Result DERMATOPATHOLOGY LABORATORY [facility] - Department of Dermatology [facility] [address] [place] [address], [address] [phone] documented in this encounter Visit Diagnoses Not on filedocumented in this encounter
--- OUTSIDE RECORDS SUMMARY | 2025-03-30 00:49 | XMS_ITS | Encounter Summary ---
Author Organization [facility] Address [address] [address] Care Team Providers Care Instructional Material Director Name Role Phone Josh Silver Primary Care Provider [phone] Unknown, Notinfile Primary Care Provider Unavail able Josh Silver Primary Care Provider [phone] Unknown, Filipponfile Primary Care Provider Unavail able Josh Silver Primary Care Provider [phone] Elliot Chino MD Primary Care Provider Westley Fairbanks MD Unavailable [phone] Encounter Details Date Type Department Care Team (Late st Contact Info) Description 12/18/2016 [facility] Only [facility] ProviderChristie MD [address] [place] [address] Social History Tobacco Use Types Packs/Day Years Used Date Smoking Tobacco: Never Comments Unknown Sex and Gender Information Value Date Recorded Sex Assigned at Not on file Legal Sex Female 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 us Historical Provider [facility] RICHARD FRANKLIN Final Result documented in this encounter Visit Diagnoses Not on filedocumented in this encounter Care Teams Instructional Material Director Relationship Specialty Start Date End Date Josh Silver [address] [place], [place] [id number] PCP - General 12/25/16 03/11/17 Unknown, Notinfile PCP - General 03/12/17 04/24/17 Josh Silver [address], [place] [id number] PCP - General 04/25/17 04/25/17 Unknown, Notinfile PCP - General 04/26/17 05/05/17 Josh Silver [address] [facility] [address] PCP - General 05/06/17 01/25/19 Elliot Chino MD PCP - General Family Practice 01/26/19 Westley Fairbanks MD [address] [address] Wheel Installer Internal Medicine 09/11/24 documented as of this encounter
--- OUTSIDE RECORDS SUMMARY | 2025-03-30 00:49 | XMS_ITS | Clinical Summary ---
Author Organization [facility] Address [address] [address] Care Team Providers Care Back Hanger Name Role Phone Unavailable Primary Care Provider Unavailabl e Source Comments [facility],non-owned Affiliates and Associated Physician Practices is amultiple site organization consisting of ambulatory clinics and hospital sitesin [place], [place], [place] and [place]. This disclosure is being madepursuant to the Care Everywhere program and may not contain all information available regarding this patient. 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 Gender Identity Not on file Sexual Orientation Not on file Plan of Treatment Health Maintenance Due Date Last Done Comments BONE DENSITY TESTING 1945 MEDICARE AWV 12 MONTHS 1945 HEPATITIS C SCREENING 08/06/1965 DTAP/TDAP/TD VACCINES (1 - Tdap) 1966 PNEUMOCOCCAL VACCINE 50+ (1 of 1 - PCV) 1997 ZOSTER VACCINE (1 of 2) 1997 Respiratory Syncytial Virus (RSV) Vaccine Pt: or over 60 yrs (1 - 1-dose 75+ series) 2022 COVID-19 VACCINE ( - 2023-2 5 season) 2024 DEPRESSION SCREENING 08/12/2024 INFLUENZA VACCINE (#1) 2025 HEPATITIS B VACCINE Aged Out No longe r eligible based on patient's age to complete this topic HIB VACCINE Aged Out No longer eligi ble based on patient's age to complete this topic HPV VACCINE Aged Out No longer eligi ble based on patient's age to complete this topic MENINGOCOCCAL (Group B) VACC INE SHARED DECISION-MAKING Aged Out No longer eligibl e based on patient's age to complete this topic MENINGOCOCCAL GROUPS A/C/Y/W VACCINE Aged Out No longer eligible b ased on patient's age to complete this topic [place] [address] [place] [address] [place] [address]
--- OUTSIDE RECORDS SUMMARY | 2025-03-30 00:49 | XMS_ITS | Encounter Summary ---
Author Organization [facility] Address [address] [facility] [place] [address] Care Team Providers Care Medical Instrument Cable Fabricator Name Role Phone Unavailable Primary Care Provider Unavailabl e Encounter Details Date Type Department Care Team (Late st Contact Info) Description 10/12/2020 Lab Requisition [facility] [address] [facility] [place] [address] Zina Latham DO [address] [facility] [place] [address] [place] [address] Social History Tobacco Use Types Packs/Day Years Used Date Smoking Tobacco: Never Assessed Comments Unknown Sex and Gender Information Value Date Recorded Sex Assigned at Not on file 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 FOUNDRY HELPER Gender Identity Not on file Sexual Orientation Not on file documented as of this encounter Plan of Treatment Not on file documented as of this encounter Procedures Procedure Name Priority Date/Time Associated Diagnosis Comments DERMATOPATHOLOGY Routine 10/11/2000 12:0 0 AM FOUNDRY HELPER documented in this encounter Results * DERMATOPATHOLOGY (10/11/2000 12:00 AM FOUNDRY HELPER) Case Report Dermatopathology Report Case: [id number] Authorizing Provider: Zina Latham DO Collected: 10/11/2000 12:00 AM Ordering Location: [facility] D[facility] Lab Received: 10/12/2020 10:15 AM Pathologist: Manju Damico MD Specimen: Skin, right posterior upper extremity 4:30 PM FOUNDRY HELPER DERMATOPATHOLOGY LABORATORY Final Diagnosis Specimen A. 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 The specimen consists of a shave biopsy measuring 9x8x3 mm. Jar 0. 4:30 PM [facility] Microscopic Description Specimen A. SKIN, right posterior upper extremity: The epidermis is acanthotic and shows full thickness disorderly maturation of keratinocytes, mitoses at different levels, and dyskeratotic cells. There is overlying parakeratosis and hyperkeratosis. 4:30 PM [facility] Disclaimer An external and internal positive and negative controls are appropriate for the histochemical, immunohistochemical and immunofluorescence stain(s) in this case (if any), except where stated explicitly. The performance characteristics of the stain(s) cited in this report were developed and its performance characteristic determined by the Dermatopathology Laboratory at [facility], directed by Dr. Sindy Damico. These tests need not be, and therefore are not, approved by the [place] Food and Drug Administration. The tests are used for clinical purposes. Billing Codes Specimen Charges Stain Charges 97496 1 4:30 PM [facility] Embedded Images 4:30 PM [facility] Pathology/Cytolog y TISSUE SPECIMEN FROM SKIN / Unknown 10/11/2000 10/12/2020 10:15 AM [facility] us Zina Latham DO LAB - PATHOLOGY/CYTOLOGY ORDERABLES Final Result DERMATOPATHOLOGY LABORATORY [facility] - Department of Dermatology [address], [address] [phone] documented in this encounter Visit Diagnoses Not on filedocumented in this encounter
--- NOTE | 2025-03-30 08:51 | WPDANESEPPF ---
Anes - Initial Pre Proc Eval Procedure: Operation Date: 03/30/25 10:00 Proposed Procedures p Screening Colonoscopy - Vinny Lucas DO Date/Time: 03/30/25 08:51 Surgeon: Vinny Lucas DO Pre Op Diagnosis: Neoplasm screening Patient Data Age: 79 Gender: F Height: 1.6 m Weight: 94.4 kg Allergies Allergy/AdvReac Type Severity Reaction Status Date / Time meperidine Allergy Unknown Unknown Verified 03/30/25 08:53 hydroxychloroquine Allergy Rash Verified 03/30/25 08:53 Home Medications ?Medication ?Instructions ?Recorded ?Confirmed ?Type multivitamin 1 tablet PO DAILY 12/23/19 03/17/25 History ketoconazole 2 % topical cream 1 applic topical DAILY 02/01/21 03/17/25 History blood-glucose meter #1 ea 02/22/23 01/27/25 Rx indapamide 1.25 mg tablet 1.25 mg PO DAILY #90 tabs 08/26/24 03/17/25 Rx propylene glycol 0.6 % eye drops 1 drp EACH EYE QID PRN dry eye(s) 08/26/24 03/17/25 History (Systane Complete) blood sugar diagnostic (OneTouch #100 ea 09/03/24 01/27/25 Rx Verio test strips) lancets 33 gauge #100 ea 11/12/24 01/27/25 Rx acetaminophen 650 mg 650 mg PO Q8H PRN pain 01/27/25 03/17/25 History tablet,extended release (Tylenol 8 Hour) adapalene 0.3 %-benzoyl peroxide 1 ea topical DAILY 01/27/25 03/17/25 History 2.5 %-niacinamide 4 % topical gel atorvastatin 20 mg tablet 20 mg PO QHS 01/27/25 03/17/25 History cholecalciferol (vitamin D3) 50 50 mcg PO DAILY 01/27/25 03/17/25 History mcg (2,000 unit) capsule empagliflozin 10 mg tablet 10 mg PO DAILY 01/27/25 03/17/25 History (Jardiance) ivermectin 1 % topical cream 1 applic topical DAILY 01/27/25 03/17/25 History lisinopril 20 mg tablet 20 mg PO DAILY 01/27/25 03/17/25 History oxybutynin chloride 15 mg 15 mg PO DAILY #90 tabs 01/27/25 03/17/25 Rx tablet,extended release 24 hr oxymetazoline 1 % topical cream 1 applic topical DAILY 01/27/25 03/17/25 History turmeric 400 mg capsule 1,500 mg PO DAILY 01/27/25 03/17/25 History vitamin B12 2,500 mcg-folic acid 0.5 tablet PO DAILY 01/27/25 03/17/25 History 400 mcg disintegrating tablet zinc sulfate 50 mg zinc (220 mg) 50 mg PO DAILY 01/27/25 03/17/25 History tablet tirzepatide 2.5 mg/0.5 mL See Rx Instructions .Route 02/17/25 03/17/25 Rx subcutaneous pen injector .COMPLEX #2 mL (Mounjaro) pantoprazole 40 mg tablet,delayed 40 mg PO DAILY #90 tabs 02/26/25 03/17/25 Rx release clindamycin HCl 300 mg capsule 300 mg PO Q12H 03/17/25 03/17/25 History eszopiclone 1 mg tablet (Lunesta) 1 mg PO ONCE 03/17/25 03/17/25 History Patient hx anesthesia problems: none Family hx anesthesia problems: none Results Review: All pre-operative results and documents have been reviewed as part of the pre-operative evaluation. [facility] Past Medical History Medical History (Updated 03/29/25 @ 09:07 by Tien Gonzalez DO) Hypertension Plantar fasciitis Personal history of colonic polyps Multinodular goiter Insomnia Chronic kidney disease, stage 3a Type 2 diabetes mellitus without complications Plantar fasciitis of left foot DENIS (obstructive sleep apnea) Urge incontinence of urine Skin cancer CKD (chronic kidney disease) stage 3, GFR 30-59 ml/min Chronic left SI joint pain Anemia History of seborrheic keratosis 2012- removed from left [facility] Allergies Low back pain without sciatica GERD without esophagitis Dyslipidemia Unspecified osteoarthritis, unspecified site Surgical History Surgical History History of cataract surgery (~01/2022) [place] teeth extracted History of tonsillectomy and adenoidectomy History of surgery on arm left arm repair of radial nerve entrapment History of knee surgery left knee meniscus repair - 2015 Family History Family History Sibling Hypertension Family history of coronary artery disease Mother Family history of malignant neoplasm of ovary, Onset Age: 82 Social History Social History Smoking status: Never smoker Second hand tobacco smoke exposure: No Alcohol intake: current Alcohol use details: consumes 1 hard liquor drink socially Substance use: never Substance use type: does not use Do You Feel Safe in your Home?: Yes Lack of Transportation: No Lack of Food: Never True Current Housing: I Have Housing Concerned About Future Housing: No Difficulty Paying Gas/Electric Bills: No Difficulty Paying for Meds: No Currently Unemployed: No Education: High School Diploma/GED Difficulty w/ Childcare or Family Care: No Living arrangements: with family Additional living arrangements comments: Grandson Occupation/Education: occupation Gender identity (if verbalized by the patient): Female Spiritual care concerns: No Agree to blood products: Yes Anes - Eval Final PreProcedure Day of Procedure 03/30/25 08:51 Patient weight: obese Heart: regular rate and rhythm Lungs: clear to auscultation Airway: Mallampati scale class II Neurological: alert and oriented Last oral intake: >/= 8 hours ASA classification: III Emergent: no Anesthetic plan: proceed Anesthesia type and monitoring: general GIVS and standard monitoring Results Review: All pre-operative results and documents have been reviewed as part of the pre-operative evaluation. Informed Consent: The patient's anesthetic plan and its attendant risks and benefits were discussed with the patient/family/POA. Questions were solicited and answers provided to the satisfaction of the patient/family/POA.
[2025-03-30 08:58] VITALS: BP 136/71; PULSE 71; RESP 18; TEMP 36; O2SAT 98
[2025-03-30] MEDS: LACTATED RINGERS 1,000 ML 150 ML IV CONT (09:06)
--- NOTE | 2025-03-30 09:19 | PM.IMHP ---
H&P: HPI History of Present Illness Date/Time: 03/30/25 09:19 Chief Complaint: screening for colorectal cancer Narrative: this is a 79-year-old woman who presents for colonoscopy. Her last colonoscopy was 10 years ago and was normal. She denies any hematochezia or melena. She denies any family history of colon cancer. Review of Systems Review of Systems: All systems reviewed & are unremarkable except as noted in HPI and below Constitutional: Constitutional: Denies chills, Denies fever(s), Denies headache(s) and Denies weight loss Eyes: Eyes: Denies change in vision ENT: Denies dizziness, Denies headache(s), Denies neck mass and Denies throat swelling Cardiovascular: Cardiovascular: Denies chest pain, Denies lightheadedness and Denies dyspnea Respiratory: Respiratory: Denies cough, Denies dyspnea and Denies wheezing Gastrointestinal: Gastrointestinal: Denies abdominal pain, Denies change in bowel habits, Denies nausea and Denies vomiting Genitourinary: Genitourinary: Denies hematuria and Denies dysuria Musculoskeletal: Musculoskeletal: Reports as per HPI Integumentary/Breasts: Skin/Breast: Reports as per HPI Neurologic: Denies dizziness and Denies headache(s) Allergic/Immunologic: Allergic/Immunologic: Denies throat swelling and Denies wheezing [facility] Past Medical History Medical History (Updated 03/30/25 @ 09:20 by Vinny Lucas DO) Hypertension Plantar fasciitis Personal history of colonic polyps Multinodular goiter Insomnia Chronic kidney disease, stage 3a Type 2 diabetes mellitus without complications Plantar fasciitis of left foot DENIS (obstructive sleep apnea) Urge incontinence of urine Skin cancer CKD (chronic kidney disease) stage 3, GFR 30-59 ml/min Chronic left SI joint pain Anemia History of seborrheic keratosis 2012- removed from left [employer] Allergies Low back pain without sciatica GERD without esophagitis Dyslipidemia Unspecified osteoarthritis, unspecified site Surgical History Surgical History History of cataract surgery (~01/2022) [place] teeth extracted History of tonsillectomy and adenoidectomy History of surgery on arm left arm repair of radial nerve entrapment History of knee surgery left knee meniscus repair - 2015 Family History Family History Sibling Hypertension Family history of coronary artery disease Mother Family history of malignant neoplasm of ovary, Onset Age: 82 Social History Social History Smoking status: Never smoker Second hand tobacco smoke exposure: No Alcohol intake: current Alcohol use details: consumes 1 hard liquor drink socially Substance use: never Substance use type: does not use Do You Feel Safe in your Home?: Yes Lack of Transportation: No Lack of Food: Never True Current Housing: I Have Housing Concerned About Future Housing: No Difficulty Paying Gas/Electric Bills: No Difficulty Paying for Meds: No Currently Unemployed: No Education: High School Diploma/GED Difficulty w/ Childcare or Family Care: No Living arrangements: with family Additional living arrangements comments: Grandson Occupation/Education: occupation Gender identity (if verbalized by the patient): Female Spiritual care concerns: No Agree to blood products: Yes Meds Home Medications and Allergies Home Medications ?Medication ?Instructions ?Recorded ?Confirmed ?Type multivitamin 1 tablet PO DAILY 12/23/19 03/30/25 History ketoconazole 2 % topical cream 1 applic topical DAILY 02/01/21 03/30/25 History blood-glucose meter #1 ea 02/22/23 01/27/25 Rx indapamide 1.25 mg tablet 1.25 mg PO DAILY #90 tabs 08/26/24 03/30/25 Rx propylene glycol 0.6 % eye drops 1 drp EACH EYE QID PRN dry eye(s) 08/26/24 03/17/25 History (Systane Complete) blood sugar diagnostic (OneTouch #100 ea 09/03/24 01/27/25 Rx Verio test strips) lancets 33 gauge #100 ea 11/12/24 01/27/25 Rx acetaminophen 650 mg 650 mg PO Q8H PRN pain 01/27/25 03/17/25 History tablet,extended release (Tylenol 8 Hour) adapalene 0.3 %-benzoyl peroxide 1 ea topical DAILY 01/27/25 03/30/25 History 2.5 %-niacinamide 4 % topical gel atorvastatin 20 mg tablet 20 mg PO QHS 01/27/25 03/30/25 History cholecalciferol (vitamin D3) 50 50 mcg PO DAILY 01/27/25 03/30/25 History mcg (2,000 unit) capsule empagliflozin 10 mg tablet 10 mg PO DAILY 01/27/25 03/30/25 History (Jardiance) ivermectin 1 % topical cream 1 applic topical DAILY 01/27/25 03/30/25 History lisinopril 20 mg tablet 20 mg PO DAILY 01/27/25 03/30/25 History oxybutynin chloride 15 mg 15 mg PO DAILY #90 tabs 01/27/25 03/30/25 Rx tablet,extended release 24 hr oxymetazoline 1 % topical cream 1 applic topical DAILY 01/27/25 03/30/25 History turmeric 400 mg capsule 1,500 mg PO DAILY 01/27/25 03/30/25 History vitamin B12 2,500 mcg-folic acid 0.5 tablet PO DAILY 01/27/25 03/30/25 History 400 mcg disintegrating tablet zinc sulfate 50 mg zinc (220 mg) 50 mg PO DAILY 01/27/25 03/30/25 History tablet tirzepatide 2.5 mg/0.5 mL See Rx Instructions .Route 02/17/25 03/30/25 Rx subcutaneous pen injector .COMPLEX #2 mL (Mounjaro) pantoprazole 40 mg tablet,delayed 40 mg PO DAILY #90 tabs 02/26/25 03/30/25 Rx release eszopiclone 1 mg tablet (Lunesta) 1 mg PO HS 03/17/25 03/30/25 History Allergies Allergy/AdvReac Type Severity Reaction Status Date / Time meperidine Allergy Unknown Unknown Verified 03/30/25 08:53 hydroxychloroquine Allergy Rash Verified 03/30/25 08:53 Vital Signs Vital Signs - 24 hr 03/30/25 08:58 Temperature 96.8 F L Pulse Rate 71 Respiratory Rate 18 Blood Pressure 136/71 Pulse Oximetry 98 Oxygen Delivery Room Air Exam Const: General: no acute distress and alert Orientation/consciousness: patient oriented x3 HENMT: Head: normocephalic and atraumatic Ears: hearing grossly normal bilaterally Face/Nose/Sinus: Normal nares present Mouth: Yes Normal oral and palatal mucosa present Eyes: Periorbital: periorbital findings normal Sclera: sclerae normal EOM: EOMs intact bilaterally Neck: Neck: normal visual inspection, no lymphadenopathy and trachea midline Chest: Chest palpation & inspection: normal inspection of the chest Resp: Effort & Inspection: normal respiratory effort Auscultation: clear to auscultation bilaterally Cardio: Jugular venous distension: no JVD Rate: regular rate Rhythm: regular rhythm Heart sounds: S1 normal heart sound present and S2 normal heart sound present Peripheral pulses: Peripheral pulses 2+ throughout GI: Inspection: normal to inspection GI Palp: Yes Soft to palpation, No Tenderness to palpation present (GI), No Guarding due to palpation present (GI) and No Rebound tenderness present Percussion: Yes normal to percussion Auscultation: normal bowel sounds : General: Yes no CVA tenderness Back/Spine/Pelvis: Back: no CVA tenderness Neuro: General: patient oriented x3, no focal motor deficits and CN's II-XI intact bilaterally Cognition (Neuro): normal cognition Speech: normal speech Motor exam (neuro): 5/5 motor strength present throughout Extrem: General: capillary refill normal and no clubbing, cyanosis or edema Assessment and Plan Assessment and plan (1) Screening for colorectal cancer: Code(s): Z12.11 - Encounter for screening for malignant neoplasm of colon; Z12.12 - Encounter for screening for malignant neoplasm of rectum Status: Acute Assessment and Plan: I have recommended colonoscopy. I have discussed the procedure, risks, benefits, and alternatives. Questions were answered. Patient is agreeable to proceed.
[2025-03-30 09:50] VITALS: BP 100/61; PULSE 86; RESP 22; O2SAT 96
[2025-03-30 10:00] VITALS: BP 111/63; PULSE 83; RESP 24; O2SAT 98
[2025-03-30 10:10] VITALS: BP 133/71; PULSE 78; RESP 22; O2SAT 100
== END 2025-03-30 10:18 | disposition home or self-care (01) ==
PROVIDERS: PCP Family Medicine; Visit Provider Surgery
PROC: 0DJD8ZZ Inspection of Lower Intestinal Tract, Via Natural or Artificial Opening Endoscopic (ICD-10-PCS; CPT 45378; principal; 2025-03-30 10:00)
DX: Z12.11 Encounter for screening for malignant neoplasm of colon (principal); K57.30 Diverticulosis of large intestine without perforation or abscess without bleeding; E78.5 Hyperlipidemia, unspecified; D64.9 Anemia, unspecified; K21.9 Gastro-esophageal reflux disease without esophagitis; E11.22 Type 2 diabetes mellitus with diabetic chronic kidney disease; I12.9 Hypertensive chronic kidney disease with stage 1 through stage 4 chronic kidney disease, or unspecified chronic kidney disease; N18.31 Chronic kidney disease, stage 3a; G47.00 Insomnia, unspecified; G47.33 Obstructive sleep apnea (adult) (pediatric); N39.41 Urge incontinence; G89.29 Other chronic pain; M53.3 Sacrococcygeal disorders, not elsewhere classified; L82.1 Other seborrheic keratosis; E66.9 Obesity, unspecified; Z68.36 Body mass index [BMI] 36.0-36.9, adult; Z79.84 Long term (current) use of oral hypoglycemic drugs; Z79.85 Long-term (current) use of injectable non-insulin antidiabetic drugs; Z98.890 Other specified postprocedural states; Z86.0100 Personal history of colon polyps, unspecified; Z85.828 Personal history of other malignant neoplasm of skin; Z80.41 Family history of malignant neoplasm of ovary; Z82.49 Family history of ischemic heart disease and other diseases of the circulatory system
CPT/HCPCS: G0105; 82948; J2003; J2704; J7120

== ENCOUNTER 2025-04-07 18:11 | Emergency (ER) | payer MEDICARE, SELFPAY ==
--- NOTE | ~2025-04-07 | XR_ITS ---
EXAMINATION: XR ankle LT min 3V, XR foot LT min 3V DATE: 04/07/2025 18:41 INDICATION: TECHNIQUE: 1. Anteroposterior, mortise, additional oblique and lateral view of the left ankle were obtained. 2. Dorsoplantar, two oblique and lateral views of the left foot were obtained. COMPARISON: None. FINDINGS: Prominent soft tissue swelling along the dorsolateral aspect of the left mid and hindfoot and anterior to the ankle. Minimal distraction of a small flake-like talonavicular capsular avulsion fracture fragment arising from the dorsal margin of the navicula. No other fractures identified. Alignment remains otherwise normal. Mild osteoarthritis at the first metatarsophalangeal and a few tarsometatarsal and interphalangeal joints. No ankle joint effusion. IMPRESSION: 1. Small talonavicular capsular avulsion fracture arising from the dorsal margin of the navicula. Reviewed, dictated and finalized at location A. IMPRESSION: 1. Small talonavicular capsular avulsion fracture arising from the dorsal nicho n of the navicula.
[2025-04-07 18:12] VITALS: BP 163/67; PULSE 71; RESP 18; TEMP 36.6; O2SAT 98
--- OUTSIDE RECORDS SUMMARY | 2025-04-07 18:13 | XMS_ITS | Encounter Summary ---
Author Organization [facility] Address [address] [address] Care Team Providers Care Electronics Engineering Professor Name Role Phone Josh Silver Primary Care Provider [phone] Unknown, Notinfile Primary Care Provider Unavail able Josh Silver Primary Care Provider [phone] Unknown, Filipponfile Primary Care Provider Unavail able Josh Silver Primary Care Provider [phone] Elliot Chino MD Primary Care Provider Westley Fairbanks MD Unavailable [phone] Encounter Details Date Type Department Care Team (Late st Contact Info) Description 12/18/2016 Orders Only [facility] ProviderChristie MD [address] [place] [address] Social History Tobacco Use Types Packs/Day Years Used Date Smoking Tobacco: Never Comments Unknown Sex and Gender Information Value Date Recorded Sex Assigned at Not on file Legal Sex 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 Gender Identity Female 02/01/2020 1:01 PM CDT [...] on filedocumented in this encounter Care Teams Electronics Engineering Professor Relationship Specialty Start Date End Date Josh Silver [address] [place], [place] [id number] PCP - General 12/25/16 03/11/17 Unknown, Notinfile PCP - General 03/12/17 04/24/17 Josh Silver [address] [place], [place] [id number] PCP - General 04/25/17 04/25/17 Unknown, Notinfile PCP - General 04/26/17 05/05/17 Josh Silver [address] [facility] [place] [address] PCP - General 05/06/17 01/25/19 Elliot Chino MD PCP - General Family Practice 01/26/19 Westley Fairbanks MD [address] [address] Grain Blender Internal Medicine 09/11/24 documented as of this encounter
--- OUTSIDE RECORDS SUMMARY | 2025-04-07 18:13 | XMS_ITS | Encounter Summary ---
Author Organization [facility] Address [address] [facility] [place] [address] Care Team Providers Care Carpenter Assistant Installer Name Role Phone Unavailable Primary Care Provider Unavailabl e Encounter Details Date Type Department Care Team (Late st Contact Info) Description 10/12/2020 Lab Requisition [facility] DermPath Lab [address] [facility], [facility] [place] [address] Zina Latham DO [address] [facility] 3 [place] [address] Social History Tobacco Use Types Packs/Day Years Used Date Smoking Tobacco: Never Assessed Comments Unknown Sex and Gender Information Value Date Recorded Sex Assigned at Not on file 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 AGENT Gender Identity Not on file Sexual Orientation Not on file documented as of this encounter Plan of Treatment Not on file documented as of this encounter Procedures Procedure Name Priority Date/Time Associated Diagnosis Comments DERMATOPATHOLOGY Routine 10/11/2000 12:0 0 AM LAND AGENT documented in this encounter Results * DERMATOPATHOLOGY (10/11/2000 12:00 AM LAND AGENT) Case Report Dermatopathology Report Case: [id number] Authorizing Provider: Zina Latham DO Collected: 10/11/2000 12:00 AM Ordering Location: [facility] Care DermPath Lab Received: 10/12/2020 10:15 AM Pathologist: Manju Damico MD Specimen: Skin, right posterior upper extremity 4:30 PM LAND AGENT DERMATOPATHOLOGY LABORATORY Final Diagnosis Specimen A. 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 The specimen consists of a shave biopsy measuring 9x8x3 mm. Jar 0. 4:30 PM [facility] DERMATOPATHOLOGY LABORATORY Microscopic Description Specimen A. SKIN, right posterior upper extremity: The epidermis is acanthotic and shows full thickness disorderly maturation of keratinocytes, mitoses at different levels, and dyskeratotic cells. There is overlying parakeratosis and hyperkeratosis. 4:30 PM [facility] DERMATOPATHOLOGY LABORATORY Disclaimer An external and internal positive and negative controls are appropriate for the histochemical, immunohistochemical and immunofluorescence stain(s) in this case (if any), except where stated explicitly. The performance characteristics of the stain(s) cited in this report were developed and its performance characteristic determined by the Dermatopathology Laboratory at [facility], directed by Dr. Sindy Damico. These tests need not be, and therefore are not, approved by the [place] Food and Drug Administration. The tests are used for clinical purposes. Billing Codes Specimen Charges Stain Charges 54254 1 4:30 PM [facility] DERMATOPATHOLOGY LABORATORY Embedded Images 4:30 PM [facility] DERMATOPATHOLOGY LABORATORY Pathology/Cytolog y TISSUE SPECIMEN FROM SKIN / Unknown 10/11/2000 10/12/2020 10:15 AM [facility] us Zina Latham DO LAB - PATHOLOGY/CYTOLOGY ORDERABLES Final Result DERMATOPATHOLOGY LABORATORY [facility] - Department of Dermatology [address], [address] [phone] documented in this encounter Visit Diagnoses Not on filedocumented in this encounter
--- OUTSIDE RECORDS SUMMARY | 2025-04-07 18:13 | XMS_ITS | Encounter Summary ---
Author Organization [facility] Address [address] [place] [address] Care Team Providers Care Pension Consultant Name Role Phone Unavailable Primary Care Provider Unavailabl e Encounter Details Date Type Department Care Team (Late st Contact Info) Description 11/18/2023 Lab Requisition [facility] - DermPath Lab [address] [facility] [place] [address] Zina Latham DO [address] [facility] [address] [place] [address] Social History Tobacco Use Types Packs/Day Years Used Date Smoking Tobacco: Never Assessed Comments Unknown Sex and Gender Information Value Date Recorded Sex Assigned at Not on file 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 Gender Identity Not on file Sexual Orientation Not on file documented as of this encounter Plan of Treatment Not on file documented as of this encounter Procedures Procedure Name Priority Date/Time Associated Diagnosis Comments DERMATOPATHOLOGY Routine 11/18/2023 2:17 PM CDT documented in this encounter Results * DERMATOPATHOLOGY (11/18/2023 2:17 PM CDT) Case Report Dermatopathology Report Case: [id number] Authorizing Provider: Zina Latham DO Collected: 11/18/2023 02:17 PM Ordering Location: [facility] - Received: 11/19/2023 01:24 PM [...] characteristic determined by the Dermatopathology Laboratory at [facility], directed by Dr. Sindy Damico. These tests need not be, and therefore are not, approved by the [place] Food and Drug Administration. The tests are used for clinical purposes. Billing Codes Specimen Charges Stain Charges 72400 1 3:00 PM CDT DERMATOPATHOLOGY LABORATORY Embedded Images 3:00 PM CDT DERMATOPATHOLOGY LABORATORY Pathology/Cytolo gy TISSUE SPECIMEN FROM SKIN / Unknown 11/18/2023 2:17 PM CDT 11/19/2023 1:24 PM CDT us Zina Latham DO LAB - PATHOLOGY/CYTOLOGY ORDERABLES Final Result DERMATOPATHOLOGY LABORATORY [facility] - Department of Dermatology [address] [place] [address], [facility] [phone] documented in this encounter Visit Diagnoses Not on filedocumented in this encounter
--- OUTSIDE RECORDS SUMMARY | 2025-04-07 18:13 | XMS_ITS | Encounter Summary ---
Author Organization [facility] Address [address] [facility] [place] [address] Care Team Providers Care Stoneworking Belt Sander Name Role Phone Unavailable Primary Care Provider Unavailabl e Encounter Details Date Type Department Care Team (Late st Contact Info) Description 01/16/2023 Lab Requisition [facility] - DermPath Lab [address] [facility] [place] [phone] Zina Latham DO [address] [facility] 3 [place] [address] Social History Tobacco Use Types Packs/Day Years Used Date Smoking Tobacco: Never Assessed Comments Unknown Sex and Gender Information Value Date Recorded Sex Assigned at Not on file 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 Gender Identity Not on file Sexual Orientation Not on file documented as of this encounter Plan of Treatment Not on file documented as of this encounter Procedures Procedure Name Priority Date/Time Associated Diagnosis Comments DERMATOPATHOLOGY Routine 01/16/2023 9:55 AM CDT documented in this encounter Results * DERMATOPATHOLOGY (01/16/2023 9:55 AM CDT) Case Report Dermatopathology Report Case: [id number] Authorizing Provider: Zina Latham DO Collected: 01/16/2023 09:55 AM Ordering Location: [facility] DermPath Lab Received: 01/16/2023 03:22 PM Pathologist: [...] specimen consists of a shave biopsy measuring 4p7o9lz. Jar 0. 3 1:02 PM CDT DERMATOPATHOLOGY [...] characteristic determined by the Dermatopathology Laboratory at [facility], directed by Dr. Sindy Damico. These tests need not be, and therefore are not, approved by the [place] Food and Drug Administration. The tests are used for clinical purposes. Billing Codes Specimen Charges Stain Charges 26614 1 3 1:02 PM CDT DERMATOPATHOLOGY LABORATORY Embedded Images 3 1:02 PM CDT DERMATOPATHOLOGY LABORATORY Pathology/Cytolo gy TISSUE SPECIMEN FROM SKIN / Unknown 01/16/2023 9:55 AM CDT 01/16/2023 3:22 PM CDT us Zina Latham DO LAB - PATHOLOGY/CYTOLOGY ORDERABLES Final Result DERMATOPATHOLOGY LABORATORY [facility] - Department of Dermatology [address] [place] [address], [facility] [phone] documented in this encounter Visit Diagnoses Not on filedocumented in this encounter
--- OUTSIDE RECORDS SUMMARY | 2025-04-07 18:13 | XMS_ITS | Clinical Summary ---
Author Organization [facility] Address [address] [facility] [place] [address] Care Team Providers Care Professor Of Historical Theology Name Role Phone Unavailable Primary Care Provider Unavailabl e Source Comments [facility],non-owned Affiliates and Associated Physician Practices is amultiple site organization consisting of ambulatory clinics and hospital sitesin [place], [place], [place] and [place]. This disclosure is being madepursuant to the Care Everywhere program and may not contain all information available regarding this patient. Last updated 18.[facility] [employer] Social History Tobacco Use Types Packs/Day Years Used Date Smoking Tobacco: Never Assessed Comments Unknown Sex and Gender Information Value Date Recorded Sex Assigned at Not on file 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 CHIEF OF SURGERY Gender Identity Not on file Sexual Orientation [...] - 1-dose 75+ series) 2022 COVID-19 VACCINE (1 - 2023-2 5 season) 2024 DEPRESSION SCREENING [...] age to complete this topic Insurance MEDICARE T MEDICARE AETNA
--- OUTSIDE RECORDS SUMMARY | 2025-04-07 18:13 | XMS_ITS | Encounter Summary ---
Author Organization [facility] Address [address] [facility] [place] [address] Care Team Providers Care Ic Design Manager Name Role Phone Unavailable Primary Care Provider Unavailabl e Encounter Details Date Type Department Care Team (Late st Contact Info) Description 10/24/2020 Lab Requisition 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 DermPath Lab Received: 10/24/2020 10:44 AM Pathologist: [...] SCCIS, verrucous-hypertrop hic type, biopsy proven. See [id number] 12:27 PM CDT DERMATOPATHOLOGY LABORATORY Gross Description Specimen A: Received is one formalin filled container labeled with the patient's name and designated right posterior upper extremity. The specimen consists of a non-oriented ellipse of skin measuring 35i62b3 mm. The epidermal surface estuardo a macule [...] characteristic determined by the Dermatopathology Laboratory at [facility], directed by Dr. Sindy Damico. These tests need not be, and therefore are not, approved by the [place] Food and Drug Administration. The tests are used for clinical purposes. Billing Codes Specimen Charges Stain Charges 69910 1 12:27 PM CDT DERMATOPATHOLOGY LABORATORY Embedded Images 12:27 PM CDT DERMATOPATHOLOGY LABORATORY Pathology/Cytolog y TISSUE SPECIMEN FROM SKIN / Unknown 10/24/2020 10/24/2020 10:44 AM CDT us Zina Latham DO LAB - PATHOLOGY/CYTOLOGY ORDERABLES Final Result DERMATOPATHOLOGY LABORATORY [facility] - Department of Dermatology [facility] [address] [place] [address], [address] [phone] documented in this encounter Visit Diagnoses Not on filedocumented in this encounter
--- OUTSIDE RECORDS SUMMARY | 2025-04-07 18:13 | XMS_ITS | Clinical Summary ---
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 Assessment & Plan (11/13/2024 11:15 AM CDT): S/sx improved, tolerating doxy, cont 50 mg BID another 3-4 weeks then stop Cont lid wipes and gel tears as needed Assessment & Plan (06/24/2024 10:43 AM ORTHOTIC AND PROSTHETIC TECHNICIAN): Cont doxy 50 mg BID Stop tdex [...] apnea) 10/10/2021 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 Assessment & Plan (02/14/2020 [...] Rx Assessment & Plan (06/28/2023 4:00 PM ORTHOTIC AND PROSTHETIC TECHNICIAN): Fairly significant change from hab Rx, pt [...] 12/06/2014 Assessment & Plan (09/11/2024 10:22 AM ORTHOTIC AND PROSTHETIC TECHNICIAN): PFATs QID+ Assessment & Plan (06/24/2024 10:44 AM ORTHOTIC AND PROSTHETIC TECHNICIAN): ATs prn Assessment & Plan (01/30/2024 1:17 PM CDT): Rec Retaine pfats QID+ Assessment & Plan (08/17/2020 3:49 PM ORTHOTIC AND PROSTHETIC TECHNICIAN): Poor tear film and mild exophoria causing [...] Type Department Care Team Description 03/11/2025 Telephone [facility] [place] [place] [facility] [address] [place] [address] [address] [place] [address] Yajaira Leon MA 03/10/2025 11:15 AM CDT Office Visit [facility] at [address] [place] [address] Fely Hernandez MD Insomnia, unspecified [...] on file Legal Sex Female 2:01 PM ORTHOTIC AND PROSTHETIC TECHNICIAN Gender Identity Female 02/01/2020 1:01 PM CDT [...] 03/23/2015 Colon Cancer Screening-DNA Stool Discontinued 03/23/20 15 Colon Cancer Screening-FIT Discontinued 03/23/2015 Colon Cancer Screening-FOBT Discontinued 03/23/2015 Colon Cancer Screening-Sigmoidoscopy Discontinued 03/23/2015 Colorectal Cancer Screening Discontinued Medical Devices Implanted Type Area Inside Sales Recruiter Device Identifier Shelf Expiration Date Model / Serial / Lot [employer] Lens Iol Tecnis Smplcty 1-Pc Clr [place] 22.0 Diopter [id number] - [id number] - [id number] Implanted:Qty: 1 on 01/15/2022 by Taya Spear MD at [facility] Lens Right: Eye Anthony Tattoodo [id number] 10/29/2024 [id number] / [id number] / Procedures Procedure Name Priority Date/Time Associated [...] Maintenance Insurance MEDICARE AETNA SENIOR SUPPLEMENT MEDICARE AETNA SENIOR SUPPLEMENT MEDICARE AETNA SENIOR SUPPLEMENT Advance Directives For more information, please contact: [phone] Documents on File Type Date Recorded Patient Oxygen Furnace Operator Expl anation ADVANCE DIRECTIVE 01/18/2022 6:55 AM ADVANCE DIRECTIVE 01/18/2022 6:12 AM POWER OF INSULATION NOZZLEMAN-MED[employer] Care Teams Development Intern Relationship Specialty Start Date End Date Elliot Chino MD PCP - General Family Practice 01/26/19 Westley Fairbanks MD [address] [place] [address] Freight Solicitor Internal Medicine 09/11/24
--- NOTE | 2025-04-07 18:15 | ED.LOWEXIN ---
HPI - Extremity Injury (Lower) General Chief Complaint: Extremity Injury, Lower Stated Complaint: left ankle pain Time Seen by Provider: 04/07/25 18:15 Source: patient Mode of arrival: ambulatory Limitations: no limitations History of Present Illness HPI Narrative: 29-year-old female with a history obesity prediabetes, anemia, arthritis, dyslipidemia, Pre-diabetes, DENIS, hypertension fell 2 hours ago and twisted her left ankle. she presents with -- abrasion left knee -- left ankle pain and swelling around the lateral malleolus. -- Left foot pain no head injury MD complaint: knee injury and ankle injury Onset (ago): hour(s) ( 2 hours ago) Injury: Left: knee and ankle Type of Injury: blunt Place: home Relieving factors: immobilization Exacerbating factors: weight bearing Context: fall and direct blow Other symptoms: none Related Data Home Medications ?Medication ?Instructions ?Recorded ?Confirmed ?Last Taken ?Type multivitamin 1 tablet PO DAILY 12/23/19 03/30/25 03/29/25 History ketoconazole 2 % topical cream 1 applic topical DAILY 02/01/21 03/30/25 03/29/25 History propylene glycol 0.6 % eye drops 1 drp EACH EYE QID PRN dry eye(s) 08/26/24 03/17/25 Unknown History (Systane Complete) acetaminophen 650 mg 650 mg PO Q8H PRN pain 01/27/25 03/17/25 Unknown History tablet,extended release (Tylenol 8 Hour) adapalene 0.3 %-benzoyl peroxide 1 ea topical DAILY 01/27/25 03/30/25 03/29/25 History 2.5 %-niacinamide 4 % topical gel atorvastatin 20 mg tablet 20 mg PO QHS 01/27/25 03/30/25 03/29/25 History cholecalciferol (vitamin D3) 50 50 mcg PO DAILY 01/27/25 03/30/25 03/29/25 History mcg (2,000 unit) capsule empagliflozin 10 mg tablet 10 mg PO DAILY 01/27/25 03/30/25 03/29/25 History (Jardiance) ivermectin 1 % topical cream 1 applic topical DAILY 01/27/25 03/30/25 03/29/25 History lisinopril 20 mg tablet 20 mg PO DAILY 01/27/25 03/30/25 03/29/25 History oxymetazoline 1 % topical cream 1 applic topical DAILY 01/27/25 03/30/25 03/29/25 History turmeric 400 mg capsule 1,500 mg PO DAILY 01/27/25 03/30/25 03/29/25 History vitamin B12 2,500 mcg-folic acid 0.5 tablet PO DAILY 01/27/25 03/30/25 03/29/25 History 400 mcg disintegrating tablet zinc sulfate 50 mg zinc (220 mg) 50 mg PO DAILY 01/27/25 03/30/25 03/29/25 History tablet eszopiclone 1 mg tablet (Lunesta) 1 mg PO HS 03/17/25 03/30/25 03/29/25 History Allergies Allergy/AdvReac Type Severity Reaction Status Date / Time meperidine Allergy Unknown Unknown Verified 04/07/25 18:14 hydroxychloroquine Allergy Rash Verified 04/07/25 18:14 Review of Systems Review of Systems: All systems reviewed & are unremarkable except as noted in HPI and below PMFSH Past Medical History Medical History Hypertension Plantar fasciitis Personal history of colonic polyps Multinodular goiter Insomnia Chronic kidney disease, stage 3a Type 2 diabetes mellitus without complications Plantar fasciitis of left foot DENIS (obstructive sleep apnea) Urge incontinence of urine Skin cancer CKD (chronic kidney disease) stage 3, GFR 30-59 ml/min Chronic left SI joint pain Anemia History of seborrheic keratosis 2012- removed from left mandaen Allergies Low back pain without sciatica GERD without esophagitis Dyslipidemia Unspecified osteoarthritis, unspecified site Surgical History Surgical History History of cataract surgery (~01/2022) [place] teeth extracted History of tonsillectomy and adenoidectomy History of surgery on arm left arm repair of radial nerve entrapment History of knee surgery left knee meniscus repair - 2015 Family History Family History Sibling Hypertension Family history of coronary artery disease Mother Family history of malignant neoplasm of ovary, Onset Age: 82 Social History Social History Smoking status: Never smoker Second hand tobacco smoke exposure: No Alcohol intake: current Alcohol use details: consumes 1 hard liquor drink socially Substance use: never Substance use type: does not use Do You Feel Safe in your Home?: Yes Lack of Transportation: No Lack of Food: Never True Current Housing: I Have Housing Concerned About Future Housing: No Difficulty Paying Gas/Electric Bills: No Difficulty Paying for Meds: No Currently Unemployed: No Education: High School Diploma/GED Difficulty w/ Childcare or Family Care: No Living arrangements: with family Additional living arrangements comments: Grandson Occupation/Education: occupation Gender identity (if verbalized by the patient): Female Spiritual care concerns: No Agree to blood products: Yes Exam Narrative: blood pressure 163/67. Const: General: no acute distress Orientation/consciousness: patient oriented x3 Limitations: no limitations HENMT: Head: normal to inspection Ears: external ears normal Face/Nose/Sinus: Normal external nose present Face and sinus: normal facial exam Mouth: Yes Normal oral and palatal mucosa present Throat: posterior oropharynx normal Eyes: Conjunctivae: conjunctivae normal Pupils: Equal, round and reactive pupils present EOM: EOMs intact bilaterally Direct Ophthalmoscopy: no photophobia Neck: Neck: normal visual inspection, no lymphadenopathy and no meningeal signs Chest: Chest palpation & inspection: normal inspection of the chest Resp: Effort & Inspection: normal respiratory effort Auscultation: clear to auscultation bilaterally Cardio: Rate: regular rate Rhythm: regular rhythm GI: GI Palp: Yes Soft to palpation Auscultation: normal bowel sounds Other: Tenderness/rigidity/rebound. : General: Yes no CVA tenderness Back/Spine/Pelvis: Back: no CVA tenderness Skin: General skin exam: normal color Other: Abrasion over left knee Neuro: General: patient oriented x3, moves all extremities, no meningeal signs, no focal motor deficits and CN's II-XI intact bilaterally Speech: normal speech Extrem: Other: left knee abrasion left ankle-- tenderness around the lateral malleolus. Sprain of the lateral collateral ligament of the ankle. Foot pain without any tenderness Course Course Emergency Course: accidental fall ankle sprain-- gel splints, nonweightbearing for 2 weeks and p.r.n. pain meds. avulsion fracture of dorsal talonavicular capsule Vital Signs Vital signs: Vital Signs Temperature 36.6 C 04/07/25 18:12 Pulse Rate 71 04/07/25 18:12 Respiratory Rate 18 04/07/25 18:12 Blood Pressure 163/67 H 04/07/25 18:12 Pulse Oximetry 98 04/07/25 18:12 Oxygen Delivery Room Air 04/07/25 18:12 Temperature 36.6 C 04/07/25 18:12 Pulse Rate 71 04/07/25 18:12 Respiratory Rate 18 04/07/25 18:12 Blood Pressure 163/67 H 04/07/25 18:12 Pulse Oximetry 98 04/07/25 18:12 Oxygen Delivery Room Air 04/07/25 18:12 MDM - Extremity Injury (Lower) MDM Narrative Medical decision making narrative: accidental fall ankle sprain avulsion fracture of the talus navicular Differential Diagnosis Differential diagnosis: Likely ankle fracture Medical Records Attestation: I reviewed the patient's medical records. Lab Data Attestation: I reviewed the patient's lab results. Discharge Plan Discharge Clinical Impression: Accidental fall Qualifiers: Encounter type: initial encounter Qualified Code(s): W19.XXXA - Unspecified fall, initial encounter Ankle sprain Qualifiers: Encounter type: initial encounter Involved ligament of ankle: posterior talofibular ligament Laterality: left Qualified Code(s): S93.492A - Sprain of other ligament of left ankle, initial encounter Avulsion fracture of left talus Qualifiers: Encounter type: initial encounter Fracture type: closed Fracture alignment: nondisplaced Qualified Code(s): S92.155A - Nondisplaced avulsion fracture (chip fracture) of left talus, initial encounter for closed fracture Patient Disposition: Home Condition: Stable Instructions: Antibiotic Form, Ankle Sprain (ED), Avulsion Fracture (ED) Additional Instructions: non weight-bearing for 10 days Patient Language: Maori Prescriptions: New hydrocodone-acetaminophen 5-325 mg tablet 1 tablet PO Q8H PRN (Reason: pain) Qty: 7 0RF No Action multivitamin Tablet 1 tablet PO DAILY ketoconazole 2 % cream 1 applic topical DAILY turmeric 400 mg capsule 1,500 mg PO DAILY (DME) OneTouch Verio test strips Strip See Rx Instructions .Route Qty: 100 12RF Rx Instructions: twice daily vitamin H42-wrdgx acid 2,500-400 mcg tablet,disintegrating 0.5 tablet PO DAILY Systane Complete 0.6 % drops 1 drp EACH EYE QID PRN (Reason: dry eye(s)) indapamide 1.25 mg tablet 1.25 mg PO DAILY Qty: 90 3RF zinc sulfate 50 mg zinc (220 mg) tablet 50 mg PO DAILY oxymetazoline 1 % cream 1 applic topical DAILY ivermectin 1 % cream 1 applic topical DAILY acetaminophen [Tylenol 8 Hour] 650 mg tablet extended release 650 mg PO Q8H PRN (Reason: pain) adapalene-benzoyl perox-niacin 0.3-2.5-4 % gel 1 ea topical DAILY atorvastatin 20 mg tablet 20 mg PO QHS Jardiance 10 mg tablet 10 mg PO DAILY lisinopril 20 mg tablet 20 mg PO DAILY cholecalciferol (vitamin D3) 50 mcg (2,000 unit) capsule 50 mcg PO DAILY oxybutynin chloride 15 mg tablet extended release 24hr 15 mg PO DAILY Qty: 90 1RF eszopiclone [Lunesta] 1 mg tablet 1 mg PO HS (DME) blood-glucose meter Misc See Rx Instructions .Route Qty: 1 0RF Rx Instructions: Use to check BS once daily (DME) lancets 33 gauge misc See Rx Instructions .Route Qty: 100 2RF Rx Instructions: Use to check BS once daily Mounjaro 2.5 mg/0.5 mL pen injector See Rx Instructions .ROUTE .COMPLEX Qty: 2 3RF Dose Instruction: ADMINISTER 2.5 MG UNDER THE SKIN WEEKLY Rx Instructions: ADMINISTER 2.5 MG UNDER THE SKIN WEEKLY pantoprazole 40 mg tablet,delayed release (DR/EC) 40 mg PO DAILY Qty: 90 1RF Follow-up/Referrals: UNKNOWN,DOCTOR [Non-Staff] Time of Disposition: 19:34
[2025-04-07] MEDS: TETANUS,DIPHTHERIA,AC PERTUSSIS ADULT 0.5 ML (ADACEL) IM (18:47)
[2025-04-07] MEDS: KETOROLAC 30 MG/ML VIAL (*BKC) IM (18:47)
--- NOTE | 2025-04-07 18:55 | PC.NURSE ---
ASSUMED CARE. REPORT RECEIVED FROM ALISA LOZANO.
--- OUTSIDE RECORDS SUMMARY | 2025-04-07 18:56 | XMS_ITS | Encounter Summary ---
Author Organization [facility] Medical [facility] Address [address] [address] Care Team Providers Care Wrapping Machine Operator Name Role Phone Josh Silver Primary Care Provider [phone] Unknown, Notinfile Primary Care Provider Unavail able Josh Silver Primary Care Provider [phone] Unknown, Filipponfile Primary Care Provider Unavail able Josh Silver Primary Care Provider [phone] Elliot Chino MD Primary Care Provider Westley Fairbanks MD Unavailable [phone] Encounter Details Date Type Department Care Team (Late st Contact Info) Description 12/18/2016 Orders Only [facility] ProviderChristie MD [address] [place] [address] Social History Tobacco Use Types Packs/Day Years Used Date Smoking Tobacco: Never Comments Unknown Sex and Gender Information Value Date Recorded Sex Assigned at Not on file Legal Sex Female 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 Gender Identity Female 02/01/2020 1:01 PM CDT [...] on filedocumented in this encounter Care Teams Wrapping Machine Operator Relationship Specialty Start Date End Date Josh Silver [address] [place] [place], [place] [id number] PCP - General 12/25/16 03/11/17 Unknown, Notinfile PCP - General 03/12/17 04/24/17 Josh Silver [address] [place], [place] [id number] PCP - General 04/25/17 04/25/17 Unknown, Notinfile PCP - General 04/26/17 05/05/17 Josh Silver [address] [facility] [place] [address] PCP - General 05/06/17 01/25/19 Elliot Chino MD PCP - General Family Practice 01/26/19 Westley Fairbanks MD [address] [address] Rate Marker Internal Medicine 09/11/24 documented as of this encounter
--- OUTSIDE RECORDS SUMMARY | 2025-04-07 18:56 | XMS_ITS | Encounter Summary ---
Author Organization [facility] Address [address] [facility] [place] [address] Care Team Providers Care Structural Worker Name Role Phone Unavailable Primary Care Provider Unavailabl e Encounter Details Date Type Department Care Team (Late st Contact Info) Description 10/24/2020 Lab Requisition [facility] DermPath Lab [address] [facility] [place] [address] Zina Latham DO [address] [facility] [address] [place] [address] Social History Tobacco Use Types Packs/Day Years Used Date Smoking Tobacco: Never Assessed Comments Unknown Sex and Gender Information Value Date Recorded Sex Assigned at Not on file 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 HEALTH CARE FACILITIES INSPECTOR Gender Identity Not on file Sexual Orientation Not on file documented as of this encounter Plan of Treatment Not on file documented as of this encounter Procedures Procedure Name Priority Date/Time Associated Diagnosis Comments DERMATOPATHOLOGY Routine 10/24/2020 12:0 0 AM CDT documented in this encounter Results * DERMATOPATHOLOGY (10/24/2020 12:00 AM CDT) Case Report Dermatopathology Report Case: [id number] Authorizing Provider: Zina Latham DO Collected: 10/24/2020 12:00 AM Ordering Location: [facility] DermPath Lab Received: 10/24/2020 10:44 AM Pathologist: [...] SCCIS, verrucous-hypertrop hic type, biopsy proven. See [id number] 12:27 PM CDT DERMATOPATHOLOGY LABORATORY Gross Description Specimen A: Received is one formalin filled container labeled with the patient's name and designated right posterior upper extremity. The specimen consists of a non-oriented ellipse of skin measuring 28i48x1 mm. The epidermal surface estuardo a macule [...] characteristic determined by the Dermatopathology Laboratory at [facility], directed by Dr. Sindy Damico. These tests need not be, and therefore are not, approved by the [place] Food and Drug Administration. The tests are used for clinical purposes. Billing Codes Specimen Charges Stain Charges 53362 1 12:27 PM CDT DERMATOPATHOLOGY LABORATORY Embedded Images 12:27 PM CDT DERMATOPATHOLOGY LABORATORY Pathology/Cytolog y TISSUE SPECIMEN FROM SKIN / Unknown 10/24/2020 10/24/2020 10:44 AM CDT us Zina Latham DO LAB - PATHOLOGY/CYTOLOGY ORDERABLES Final Result DERMATOPATHOLOGY LABORATORY [facility] - Department of Dermatology [facility] Specialized Medicine [address] [place] [address], [address] [phone] documented in this encounter Visit Diagnoses Not on filedocumented in this encounter
--- OUTSIDE RECORDS SUMMARY | 2025-04-07 18:56 | XMS_ITS | Clinical Summary ---
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 Assessment & Plan (11/13/2024 11:15 AM CDT): S/sx improved, tolerating doxy, cont 50 mg BID another 3-4 weeks then stop Cont lid wipes and gel tears as needed Assessment & Plan (06/24/2024 10:43 AM POISING INSPECTOR): Cont doxy 50 mg BID Stop tdex [...] apnea) 10/10/2021 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 Zgw-bzh-kkkapwamgyr 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 Assessment & Plan (02/14/2020 [...] Rx Assessment & Plan (06/28/2023 4:00 PM POISING INSPECTOR): Fairly significant change from hab Rx, pt [...] 12/06/2014 Assessment & Plan (09/11/2024 10:22 AM POISING INSPECTOR): PFATs QID+ Assessment & Plan (06/24/2024 10:44 AM POISING INSPECTOR): ATs prn Assessment & Plan (01/30/2024 1:17 PM CDT): Rec Retaine pfats QID+ Assessment & Plan (08/17/2020 3:49 PM POISING INSPECTOR): Poor tear film and mild exophoria causing [...] Type Department Care Team Description 03/11/2025 Telephone [facility] [address] [place] [address] [address] [place] [address] Yajaira Leon MA 03/10/2025 11:15 AM CDT Office Visit [facility] Sleep Medicine at [address] [place] [address] Fely Hernandez MD Insomnia, unspecified [...] on file Legal Sex Female 2:01 PM POISING INSPECTOR Gender Identity Female 02/01/2020 1:01 PM CDT [...] Screening Discontinued Medical Devices Implanted Type Area Church Communications Administrator Device Identifier Shelf Expiration Date Model / Serial / Lot [employer] Lens Iol Tecnis Smplcty 1-Pc Clr Stafford 22.0 Diopter [id number] - [id number] - [id number] Implanted:Qty: 1 on 01/15/2022 by Taya Spear MD at [facility] Lens Right: Eye [employer] [id number] 10/29/2024 [id number] / [id number] / Procedures Procedure Name Priority Date/Time Associated [...] Advance Directives For more information, please contact: [phone] Documents on File Type Date Recorded Patient Typesetting Machine Tender Expl anation ADVANCE DIRECTIVE 01/18/2022 6:55 AM ADVANCE DIRECTIVE 01/18/2022 6:12 AM POWER OF DIETARY [employer]OOK[employer] Care Teams Inspector And Adjuster Golf Club Head Relationship Specialty Start Date End Date Elliot Chino MD PCP - General Family Practice 01/26/19 Westley Fairbanks MD [address] [place] [address] Nursing Informatics Analyst Internal Medicine 09/11/24
--- OUTSIDE RECORDS SUMMARY | 2025-04-07 18:56 | XMS_ITS | Clinical Summary ---
Author Organization [facility] Address [address] [place] [address] Care Team Providers Care Dean Of Girls Name Role Phone Unavailable Primary Care Provider Unavailabl e Source Comments [facility],non-owned Affiliates and Associated Physician Practices is amultiple site organization consisting of ambulatory clinics and hospital sitesin [place], [place], [place] and [place]. This disclosure is being madepursuant to the Care Everywhere program and may not contain all information available regarding this patient. Last updated 18.[facility] [employer] 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
--- OUTSIDE RECORDS SUMMARY | 2025-04-07 18:56 | XMS_ITS | Encounter Summary ---
Author Organization [facility] Address [address] [facility] [place] [address] Care Team Providers Care Ditch Digger Name Role Phone Unavailable Primary Care Provider Unavailabl e Encounter Details Date Type Department Care Team (Late st Contact Info) Description 01/16/2023 Lab Requisition [facility] - DermPath Lab [address] 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 Gender Identity Not on file Sexual Orientation Not on file documented as of this encounter Plan of Treatment Not on file documented as of this encounter Procedures Procedure Name Priority Date/Time Associated Diagnosis Comments DERMATOPATHOLOGY Routine 01/16/2023 9:55 AM CDT documented in this encounter Results * DERMATOPATHOLOGY (01/16/2023 9:55 AM CDT) Case Report Dermatopathology Report Case: [id number] Authorizing Provider: Zina Latham DO Collected: 01/16/2023 09:55 AM Ordering Location: [facility] DermPath Lab Received: 01/16/2023 03:22 PM Pathologist: [...] specimen consists of a shave biopsy measuring [id number]. Jar 0. 3 1:02 PM CDT DERMATOPATHOLOGY [...] characteristic determined by the Dermatopathology Laboratory at [facility], directed by Dr. Sindy Damico. These tests need not be, and therefore are not, approved by the [place] Food and Drug Administration. The tests are used for clinical purposes. Billing Codes Specimen Charges Stain Charges 86370 1 3 1:02 PM CDT DERMATOPATHOLOGY LABORATORY Embedded Images 3 1:02 PM CDT DERMATOPATHOLOGY LABORATORY Pathology/Cytolo gy TISSUE SPECIMEN FROM SKIN / Unknown 01/16/2023 9:55 AM CDT 01/16/2023 3:22 PM CDT us Zina Latham DO LAB - PATHOLOGY/CYTOLOGY ORDERABLES Final Result DERMATOPATHOLOGY LABORATORY [facility] - Department of Dermatology [address] [place] [address], [facility] [phone] documented in this encounter Visit Diagnoses Not on filedocumented in this encounter
--- OUTSIDE RECORDS SUMMARY | 2025-04-07 18:56 | XMS_ITS | Encounter Summary ---
Author Organization [facility] Address [address] [facility] [place] [address] Care Team Providers Care Conservation Worker Name Role Phone Unavailable Primary Care Provider Unavailabl e Encounter Details Date Type Department Care Team (Late st Contact Info) Description 11/18/2023 Lab Requisition [facility] - DermPath Lab [address] [facility], [place] [address] Zina Latham DO [address] [facility] [address] [place] [address] Social History Tobacco Use Types Packs/Day Years Used Date Smoking Tobacco: Never Assessed Comments Unknown Sex and Gender Information Value Date Recorded Sex Assigned at Not on file 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 Gender Identity Not on file Sexual Orientation Not on file documented as of this encounter Plan of Treatment Not on file documented as of this encounter Procedures Procedure Name Priority Date/Time Associated Diagnosis Comments DERMATOPATHOLOGY Routine 11/18/2023 2:17 PM CDT documented in this encounter Results * DERMATOPATHOLOGY (11/18/2023 2:17 PM CDT) Case Report Dermatopathology Report Case: [id number] Authorizing Provider: Znia Latham DO Collected: 11/18/2023 02:17 PM Ordering Location: [facility] - Received: 11/19/2023 01:24 PM [...] determined by the Dermatopathology Laboratory at [facility], directed by Dr. Sindy Damico. These tests need not be, and therefore are not, approved by the [place] Food and Drug Administration. The tests are used for clinical purposes. Billing Codes Specimen Charges Stain Charges 44861 1 3:00 PM CDT DERMATOPATHOLOGY LABORATORY Embedded Images 3:00 PM CDT DERMATOPATHOLOGY LABORATORY Pathology/Cytolo gy TISSUE SPECIMEN FROM SKIN / Unknown 11/18/2023 2:17 PM CDT 11/19/2023 1:24 PM CDT us Zina Latham DO LAB - PATHOLOGY/CYTOLOGY ORDERABLES Final Result DERMATOPATHOLOGY LABORATORY [facility] - Department of Dermatology [address], [address] [place] [address], [facility] [phone] documented in this encounter Visit Diagnoses Not on filedocumented in this encounter
--- OUTSIDE RECORDS SUMMARY | 2025-04-07 18:56 | XMS_ITS | Encounter Summary ---
Author Organization [facility] Address [address] [facility] [place] [address] Care Team Providers Care Regulatory Attorney Name Role Phone Unavailable Primary Care Provider Unavailabl e Encounter Details Date Type Department Care Team (Late st Contact Info) Description 10/12/2020 Lab Requisition [facility] DermPath Lab [address] [facility], [facility] [place] [address] Zina Latham DO [address] [facility] 3 [place] [address] Social History Tobacco Use Types Packs/Day Years Used Date Smoking Tobacco: Never Assessed Comments Unknown Sex and Gender Information Value Date Recorded Sex Assigned at Not on file 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 UTILITY 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 Gender Identity Not on file Sexual Orientation Not on file documented as of this encounter Plan of Treatment Not on file documented as of this encounter Procedures Procedure Name Priority Date/Time Associated Diagnosis Comments DERMATOPATHOLOGY Routine 10/11/2000 12:0 0 AM MERCHANT MILL UTILITY WORKER documented in this encounter Results * DERMATOPATHOLOGY (10/11/2000 12:00 AM MERCHANT MILL UTILITY WORKER) Case Report Dermatopathology Report [id number]: [id number] Authorizing Provider: Zina Latham DO Collected: 10/11/2000 12:00 AM Ordering Location: [facility] Care DermPath Lab Received: 10/12/2020 10:15 AM Pathologist: Manju Damico MD Specimen: Skin, right posterior upper extremity 4:30 PM MERCHANT MILL UTILITY WORKER DERMATOPATHOLOGY LABORATORY Final Diagnosis Specimen A. 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 The specimen consists of a shave biopsy measuring 9x8x3 mm. Jar 0. 4:30 PM [facility] DERMATOPATHOLOGY LABORATORY Microscopic Description Specimen A. SKIN, right posterior upper extremity: The epidermis is acanthotic and shows full thickness disorderly maturation of keratinocytes, mitoses at different levels, and dyskeratotic cells. There is overlying parakeratosis and hyperkeratosis. 4:30 PM [facility] DERMATOPATHOLOGY LABORATORY Disclaimer An external and internal positive and negative controls are appropriate for the histochemical, immunohistochemical and immunofluorescence stain(s) in this case (if any), except where stated explicitly. The performance characteristics of the stain(s) cited in this report were developed and its performance characteristic determined by the Dermatopathology Laboratory at [facility], directed by Dr. Sindy Damico. These tests need not be, and therefore are not, approved by the [place] Food and Drug Administration. The tests are used for clinical purposes. Billing Codes Specimen Charges Stain Charges 12819 1 4:30 PM [facility] DERMATOPATHOLOGY LABORATORY Embedded Images 4:30 PM [facility] DERMATOPATHOLOGY LABORATORY Pathology/Cytolog y TISSUE SPECIMEN FROM SKIN / Unknown 10/11/2000 10/12/2020 10:15 AM [facility] us Zina Latham DO LAB - PATHOLOGY/CYTOLOGY ORDERABLES Final Result DERMATOPATHOLOGY LABORATORY [facility] - Department of Dermatology [address], [address] [phone] documented in this encounter Visit Diagnoses Not on filedocumented in this encounter
--- NOTE | 2025-04-07 19:15 | PC.NURSE ---
PATIENT CURRENTLY RESTING ON STRETCHER WITH LEFT LEG ELEVATED ON PILLOW AND ICE PACK IN PLACE. CALL LIGHT IN REACH. NO NEEDS VOICED.
[2025-04-07 19:30] VITALS: BP 142/70; PULSE 78; RESP 18; O2SAT 100
--- NOTE | 2025-04-07 19:44 | PC.NURSE ---
CHARITO DEL ROSARIO AT THE BEDSIDE PLACING GEL SPLINT TO LEFT ANKLE
== END 2025-04-07 19:30 | disposition home or self-care (01) ==
PROVIDERS: Emergency Provider Internal Medicine Critical Care Medicine; PCP Family Medicine
DX: S93.492A Sprain of other ligament of left ankle, initial encounter (principal); S92.155A Nondisplaced avulsion fracture (chip fracture) of left talus, initial encounter for closed fracture; I12.9 Hypertensive chronic kidney disease with stage 1 through stage 4 chronic kidney disease, or unspecified chronic kidney disease; E11.22 Type 2 diabetes mellitus with diabetic chronic kidney disease; N18.31 Chronic kidney disease, stage 3a; W19.XXXA Unspecified fall, initial encounter; Z23 Encounter for immunization
CPT/HCPCS: 29515; 73610; 73630; 90471; 90715; 96372; 99284; J1885; L4350

== ENCOUNTER 2025-04-22 06:48 | Outpatient (CLI) | payer MEDICARE, SELFPAY ==
--- NOTE | ~2025-04-22 | CT_ITS ---
EXAMINATION: CT foot LT wo con DATE: 04/22/2025 07:11 INDICATION: Left talus fracture, closed. TECHNIQUE: Computed tomography (CT) of the left foot was performed without intravenous contrast. Automated exposure control and iterative reconstruction technique were employed. The dose-length product was 408.07 mGy-cm. COMPARISON: Left foot radiographs 04/07/2025 FINDINGS: Bone alignment is normal. There are small calcifications dorsal to the navicular. There is a chip avulsion fracture of anterior process of calcaneus. There is mild osteoarthritis of many of the joints in the foot. There is severe osteoarthritis of second, third, and fourth distal interphalangeal joints. There are enthesophytes at the posterior and plantar aspects of calcaneal tuberosity. IMPRESSION: 1. Age-indeterminate chip avulsion fracture of anterior process of calcaneus. 2. Small calcifications dorsal to navicular, which may be subacute avulsion fractures or chronic findings. Reviewed, dictated and finalized at location E. IMPRESSION: 1. Age-indeterminate chip avulsion fracture of anterior process of calcaneus. 2. Small calcifications dorsal to navicular, which may be subacute avulsion fra ctures or chronic findings.
--- OUTSIDE RECORDS SUMMARY | 2025-04-22 06:52 | XMS_ITS | Encounter Summary ---
Author Organization [facility] Address [address] [place] [address] Care Team Providers Care Echocardiograph Tech Name Role Phone Unavailable Primary Care Provider Unavailabl e Encounter Details Date Type Department Care Team (Late st Contact Info) Description 10/12/2020 Lab Requisition [facility] DermPath Lab [address] [facility] [place] [address] Zina Latham DO [address] [facility] 3 [place] [address] Social History Tobacco Use Types Packs/Day Years Used Date Smoking Tobacco: Never Assessed Comments Unknown Sex and Gender Information Value Date Recorded Sex Assigned at Not on file 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 MARKETING OPERATIONS ASSISTANT Gender Identity Not on file Sexual Orientation Not on file documented as of this encounter Plan of Treatment Not on file documented as of this encounter Procedures Procedure Name Priority Date/Time Associated Diagnosis Comments DERMATOPATHOLOGY Routine 10/11/2000 12:0 0 AM MARKETING OPERATIONS ASSISTANT documented in this encounter Results * DERMATOPATHOLOGY (10/11/2000 12:00 AM MARKETING OPERATIONS ASSISTANT) Case Report Dermatopathology Report Case: [id number] Authorizing Provider: Zina Latham DO Collected: 10/11/2000 12:00 AM Ordering Location: [facility] Care DermPath Lab Received: 10/12/2020 10:15 AM Pathologist: Manju Damico MD Specimen: Skin, right posterior upper extremity 4:30 PM MARKETING OPERATIONS ASSISTANT DERMATOPATHOLOGY LABORATORY Final Diagnosis Specimen A. 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 The specimen consists of a shave biopsy measuring 9x8x3 mm. Jar 0. 4:30 PM [facility] DERMATOPATHOLOGY LABORATORY Microscopic Description Specimen A. SKIN, right posterior upper extremity: The epidermis is acanthotic and shows full thickness disorderly maturation of keratinocytes, mitoses at different levels, and dyskeratotic cells. There is overlying parakeratosis and hyperkeratosis. 4:30 PM [facility] DERMATOPATHOLOGY LABORATORY Disclaimer An external and internal positive and negative controls are appropriate for the histochemical, immunohistochemical and immunofluorescence stain(s) in this case (if any), except where stated explicitly. The performance characteristics of the stain(s) cited in this report were developed and its performance characteristic determined by the Dermatopathology Laboratory at [facility], directed by Dr. Sindy Damico. These tests need not be, and therefore are not, approved by the [place] Food and Drug Administration. The tests are used for clinical purposes. Billing Codes Specimen Charges Stain Charges 43693 1 4:30 PM [facility] DERMATOPATHOLOGY LABORATORY Embedded Images 4:30 PM [facility] DERMATOPATHOLOGY LABORATORY Pathology/Cytolog y TISSUE SPECIMEN FROM SKIN / Unknown 10/11/2000 10/12/2020 10:15 AM [facility] us Zina Latham DO LAB - PATHOLOGY/CYTOLOGY ORDERABLES Final Result DERMATOPATHOLOGY LABORATORY [facility] - Department of Dermatology [address], [address] [phone] documented in this encounter Visit Diagnoses Not on filedocumented in this encounter
--- OUTSIDE RECORDS SUMMARY | 2025-04-22 06:52 | XMS_ITS | Encounter Summary ---
Author Organization [facility] Address [address] [facility] [place] [address] Care Team Providers Care Ticket Taker Ferryboat Name Role Phone Unavailable Primary Care Provider Unavailabl e Encounter Details Date Type Department Care Team (Late st Contact Info) Description 11/18/2023 Lab Requisition [facility] - DermPath Lab [address] [facility], [place] [address] Zina Latham DO [address] [facility] 3 [place] [address] Social History Tobacco Use Types Packs/Day Years Used Date Smoking Tobacco: Never Assessed Comments Unknown Sex and Gender Information Value Date Recorded Sex Assigned at Not on file 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 FAMILY COACH Gender Identity Not on file Sexual Orientation Not on file documented as of this encounter Plan of Treatment Not on file documented as of this encounter Procedures Procedure Name Priority Date/Time Associated Diagnosis Comments DERMATOPATHOLOGY Routine 11/18/2023 2:17 PM CDT documented in this encounter Results * DERMATOPATHOLOGY (11/18/2023 2:17 PM CDT) Case Report Dermatopathology Report Case: [id number] Authorizing Provider: Zina Latham DO Collected: 11/18/2023 02:17 PM Ordering Location: [facility] - Received: 11/19/2023 01:24 PM [...] purposes. Billing Codes Specimen Charges Stain Charges 15275 1 3:00 PM CDT DERMATOPATHOLOGY LABORATORY Embedded Images 3:00 PM CDT DERMATOPATHOLOGY LABORATORY Pathology/Cytolo gy TISSUE SPECIMEN FROM SKIN / Unknown 11/18/2023 2:17 PM CDT 11/19/2023 1:24 PM CDT us Zina Latham DO LAB - PATHOLOGY/CYTOLOGY ORDERABLES Final Result DERMATOPATHOLOGY LABORATORY [facility] - Department of Dermatology [address] [place] [address], [facility] [phone] documented in this encounter Visit Diagnoses Not on filedocumented in this encounter
--- OUTSIDE RECORDS SUMMARY | 2025-04-22 06:52 | XMS_ITS | Encounter Summary ---
Author Organization [facility] Address [address] [facility] [place] [address] Care Team Providers Care Manager Zone Name Role Phone Unavailable Primary Care Provider Unavailabl e Encounter Details Date Type Department Care Team (Late st Contact Info) Description 10/24/2020 Lab Requisition [facility] DermPath Lab [address] [facility], [facility] [place] [address] Zina Latham DO [address] [facility] 3 [place] [address] Social History Tobacco Use Types Packs/Day Years Used Date Smoking Tobacco: Never Assessed Comments Unknown Sex and Gender Information Value Date Recorded Sex Assigned at Not on file 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 Gender Identity Not on file Sexual Orientation Not on file documented as of this encounter Plan of Treatment Not on file documented as of this encounter Procedures Procedure Name Priority Date/Time Associated Diagnosis Comments DERMATOPATHOLOGY Routine 10/24/2020 12:0 0 AM CDT documented in this encounter Results * DERMATOPATHOLOGY (10/24/2020 12:00 AM CDT) Case Report Dermatopathology Report Case: [id number] Authorizing Provider: Zina Latham DO Collected: 10/24/2020 12:00 AM Ordering Location: [facility] DermPath Lab Received: 10/24/2020 10:44 AM [...] SCCIS, verrucous-hypertrop hic type, biopsy proven. See [id number] 12:27 PM CDT DERMATOPATHOLOGY LABORATORY Gross Description Specimen A: Received is one formalin filled container labeled with the patient's name and designated right posterior upper extremity. The specimen consists of a non-oriented ellipse of skin measuring 38w97n6 mm. The epidermal surface estuardo a macule [...] characteristic determined by the Dermatopathology Laboratory at [facility], directed by Dr. Sindy Damico. These tests need not be, and therefore are not, approved by the [place] Food and Drug Administration. The tests are used for clinical purposes. Billing Codes Specimen Charges Stain Charges 88406 1 12:27 PM CDT DERMATOPATHOLOGY LABORATORY Embedded Images 12:27 PM CDT DERMATOPATHOLOGY LABORATORY Pathology/Cytolog y TISSUE SPECIMEN FROM SKIN / Unknown 10/24/2020 10/24/2020 10:44 AM CDT us Zina Latham DO LAB - PATHOLOGY/CYTOLOGY ORDERABLES Final Result DERMATOPATHOLOGY LABORATORY [facility] - Department of Dermatology [facility] Specialized Medicine [address] [place] [address], [address] [phone] documented in this encounter Visit Diagnoses Not on filedocumented in this encounter
--- OUTSIDE RECORDS SUMMARY | 2025-04-22 06:53 | XMS_ITS | Encounter Summary ---
Author Organization [facility] Address [address] [address] Care Team Providers Care Shaft Tender Name Role Phone Josh Silver Primary Care Provider [phone] Unknown, Notinfile Primary Care Provider Unavail able Josh Silver Primary Care Provider [phone] Unknown, Filipponfile Primary Care Provider Unavail able Josh Silver Primary Care Provider [phone] Elliot Chino MD Primary Care Provider Westley Fairbanks MD Unavailable [phone] Encounter Details Date Type Department Care Team (Late st Contact Info) Description 12/18/2016 Orders Only [facility] ProviderChristie MD [address] [place] [address] Social History Tobacco Use Types Packs/Day Years Used Date Smoking Tobacco: Never Comments Unknown Sex and Gender Information Value Date Recorded Sex Assigned at Not on file Legal Sex Female 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 Gender Identity Female 02/01/2020 1:01 PM CDT [...] on filedocumented in this encounter Care Teams Shaft Tender Relationship Specialty Start Date End Date Josh Silver [address] [place], [place] [id number] PCP - General 12/25/16 03/11/17 Unknown, Notinfile PCP - General 03/12/17 04/24/17 Josh Silver [address] [place], [place] [id number] PCP - General 04/25/17 04/25/17 Unknown, Notinfile PCP - General 04/26/17 05/05/17 Josh Silver [address] [facility] [place] [address] PCP - General 05/06/17 01/25/19 Elliot Chino MD PCP - General Family Practice 01/26/19 Westley Fairbanks MD [address] [address] [employer] Band Teacher Internal Medicine 09/11/24 documented as of this encounter
--- OUTSIDE RECORDS SUMMARY | 2025-04-22 06:53 | XMS_ITS | Encounter Summary ---
Author Organization [facility] Address [address] [facility] [address] Care Team Providers Care Cost Estimator Name Role Phone Unavailable Primary Care Provider Unavailabl e Encounter Details Date Type Department Care Team (Late st Contact Info) Description 01/16/2023 Lab Requisition [facility] - DermPath Lab [address] [facility], [place] [address] Zina Latham DO [address] [facility] 3 [place] [address] Social History Tobacco Use Types Packs/Day Years Used Date Smoking Tobacco: Never Assessed Comments Unknown Sex and Gender Information Value Date Recorded Sex Assigned at Not on file 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 Gender Identity Not on file Sexual Orientation Not on file documented as of this encounter Plan of Treatment Not on file documented as of this encounter Procedures Procedure Name Priority Date/Time Associated Diagnosis Comments DERMATOPATHOLOGY Routine 01/16/2023 9:55 AM CDT documented in this encounter Results * DERMATOPATHOLOGY (01/16/2023 9:55 AM CDT) Case Report Dermatopathology Report Case: [id number] Authorizing Provider: Zina Latham DO Collected: 01/16/2023 09:55 AM Ordering Location: [facility] DermPath Lab Received: 01/16/2023 03:22 PM Pathologist: [...] specimen consists of a shave biopsy measuring 8z8x5vk. Jar 0. 3 1:02 PM CDT DERMATOPATHOLOGY [...] characteristic determined by the Dermatopathology Laboratory at [facility], directed by Dr. Sindy Damico. These tests need not be, and therefore are not, approved by the [place] Food and Drug Administration. The tests are used for clinical purposes. Billing Codes Specimen Charges Stain Charges 00813 1 3 1:02 PM CDT DERMATOPATHOLOGY LABORATORY Embedded Images 3 1:02 PM CDT DERMATOPATHOLOGY LABORATORY Pathology/Cytolo gy TISSUE SPECIMEN FROM SKIN / Unknown 01/16/2023 9:55 AM CDT 01/16/2023 3:22 PM CDT us Zina Latham DO LAB - PATHOLOGY/CYTOLOGY ORDERABLES Final Result DERMATOPATHOLOGY LABORATORY [facility] - Department of Dermatology [address] [place] [address], [facility] [phone] documented in this encounter Visit Diagnoses Not on filedocumented in this encounter
--- OUTSIDE RECORDS SUMMARY | 2025-04-22 06:53 | XMS_ITS | Clinical Summary ---
Author Organization [facility] Address [address] [place] [address] Care Team Providers Care Digital Campaign Specialist Name Role Phone Elliot Chino MD Primary Care Provider Westley Fairbanks MD Unavailable [phone] Allergies Active Allergy Reactions Criticality Noted Date Comments Meperidine Unknown 07/24/2013 headaches Hydroxychloroquine Unknown 01/21/2017 rash Medications multivitamin tabletIndication s:Vitamin Deficiency Prevention Take 1 tablet by mouth every morning Active pantoprazole DR (PROTONIX) 40 mg EC tabletIndication s:Stress Ulcer Prophylaxis Take 1 tablet (40 mg total) by mouth every morning 3 9 Active cyanocobalamin, vitamin B-12, (VITAMIN B-12 ORAL) Take 1 tablet by mouth every morning Active ascorbic acid/collagen hydr (COLLAGEN PLUS VITAMIN C ORAL) Take 1 tablet by mouth every morning Active zinc 50 mg tablet Take by mouth daily Active ketoconazole (NIZORAL) 2 % cream 3 Active OneTouch Delica Plus Lancet 33 gauge misc 3 Active OneTouch Verio test strips strip 3 Active lisinopriL (PRINIVIL,ZESTRI L) 20 mg tablet Take 1 tablet (20 mg total) by mouth daily 4 Active atorvastatin (LIPITOR) 20 mg tablet Take 1 tablet (20 mg total) by mouth daily 5 Active indapamide (LOZOL) 1.25 mg tablet Take 1 tablet (1.25 mg total) by mouth daily 5 Active Jardiance 10 mg tablet 5 Active oxyBUTYnin XL (DITROPAN-XL) 10 mg 24 hr tablet 4 Active Mounjaro 2.5 mg/0.5 mL pen injector injection ADMINISTER 2.5 MG UNDER THE SKIN WEEKLY 5 Active traZODone (DESYREL) 50 mg tablet 5 Active ascorbic acid, vitamin C, 250 mg tablet,chewable 5 Active eszopiclone (Lunesta) 1 mg tabletIndication s:Insomnia Take 1 tablet (1 mg total) by mouth nightly Take immediately before bedtime 30 tablet 1 5 Active Active Problems Problem Noted Date Diagnosed Date [...] drops Assessment & Plan (09/11/2024 10:24 AM CLINICAL TRIAL COORDINATOR): Cont gentle lid wipes daily Stop moxi Severe obesity 05/06/2024 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 Assessment & Plan (11/13/2024 11:15 AM CDT): S/sx improved, tolerating doxy, cont 50 mg BID another 3-4 weeks then stop Cont lid wipes and gel tears as needed Assessment & Plan (06/24/2024 10:43 AM CLINICAL TRIAL COORDINATOR): Cont doxy 50 mg BID Stop tdex Start moxi BID OU Assessment & Plan (04/22/2024 1:06 PM CDT): Increase doxy to 100 mg BID Start tdex to the lid margins BID Stop emycinung PFATs QID+ Visual discomfort of both eyes 06/28/2023 Type 2 diabetes mellitus without complication Overview (01/29/2023): Diagnosed 10/03- on po meds Assessment & Plan (01/29/2023 2:54 PM CDT): Diagnosed 10/03- on po meds Needs yearly exam. No acitve diabetes mellitus (DM) changes in retina. 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 Oia-btm-xbrpuabqwpb 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 Assessment & Plan (02/14/2020 [...] Rx Assessment & Plan (06/28/2023 4:00 PM CLINICAL TRIAL COORDINATOR): Fairly significant change from hab Rx, pt [...] 12/06/2014 Assessment & Plan (09/11/2024 10:22 AM CLINICAL TRIAL COORDINATOR): PFATs QID+ Assessment & Plan (06/24/2024 10:44 AM CLINICAL TRIAL COORDINATOR): ATs prn Assessment & Plan (01/30/2024 1:17 PM CDT): Rec Retaine pfats QID+ Assessment & Plan (08/17/2020 3:49 PM CLINICAL TRIAL COORDINATOR): Poor tear film and mild exophoria causing [...] Type Department Care Team Description 03/11/2025 Telephone [facility] [address] [place] [address] [address] [place] [address] Yajaira Leon MA 03/10/2025 11:15 AM CDT Office Visit [facility] Sleep Medicine at [address] [place] [address] Fely Hernandez MD Insomnia, unspecified [...] on file Legal Sex Female 2:01 PM CLINICAL TRIAL COORDINATOR Gender Identity Female 02/01/2020 1:01 PM CDT [...] 05/26/2018, 08/30/2016 Fall Risk Assessment 01/15/2023 01/15/2022 Dilated Eye Exam 01/29/2025 01/30/2024, , 01/30/2022, Additional history exists Covid-19 Vaccine ( - 2024-2 6 season) 2025 06/07/2021, 10/26/2020, 10/05/2020 Influenza Vaccine (#1) 2025 , 05/25/2020, 05/04/2019, Additional history exists DTaP/Tdap/Td Vaccine (2 - Td or Tdap) 08/30/2026 08/30/2016 Colon Cancer Screening-CT Colonography Discontinued 03/23/2015 Colon Cancer Screening-Colonoscopy Discontinued 03/23/2015 Colon Cancer Screening-DNA Stool Discontinued 03/23/20 Colon Cancer Screening-FIT Discontinued 03/23/2015 Colon Cancer Screening-FOBT Discontinued 03/23/2015 Colon Cancer Screening-Sigmoidoscopy Discontinued 03/23/2015 Colorectal Cancer Screening Discontinued Medical Devices Implanted Type Area Water Systems Engineer Device Identifier Shelf Expiration Date Model / Serial / Lot [employer] Lens Iol Tecnis Smplcty 1-Pc Clr [place] 22.0 Diopter [id number] - [id number] - [id number] Implanted:Qty: 1 on 01/15/2022 by Taya Spear MD at [facility] Lens Right: Eye [employer] [id number] 10/29/2024 [id number] / [id number] / Procedures Procedure Name Priority Date/Time Associated Diagnosis Comments COLONOSCOPY REPORT 03/23/2015 from Last 3 Months or Most Recently Relevant to Health Maintenance Results * COLONOSCOPY REPORT (03/23/2015) Anatomical Region Laterality Modality Other Narrative 03/23/2015 Ordered by an unspecified provider. us Historical Provider GI PROCEDURE ORDERABLES F inal Result from Last 3 Months or Most Recently Relevant to Health Maintenance Insurance MEDICARE [facility] SENIOR SUPPLEMENT MEDICARE AET SENIOR SUPPLEMENT MEDICARE [employer] SENIOR SUPPLEMENT Advance Directives For more information, please contact: [phone] Documents on File Type Date Recorded Patient Shape Hand Expl anation ADVANCE DIRECTIVE 01/18/2022 6:55 AM ADVANCE DIRECTIVE 01/18/2022 6:12 AM POWER OF REAL ESTATE PORTFOLIO MANAGER-MEDICAL Care Teams Digital Campaign Specialist Relationship Specialty Start Date End Date Elliot Chino MD PCP - General Family Practice 01/26/19 Westley Fairbanks MD [address] [address] Canal Boat Captain Internal Medicine 09/11/24
--- OUTSIDE RECORDS SUMMARY | 2025-04-22 06:53 | XMS_ITS | Clinical Summary ---
Author Organization [facility] Address [address] [place] [address] Care Team Providers Care Deputy Treasurer Name Role Phone Unavailable Primary Care Provider Unavailabl e Source Comments [facility],non-owned Affiliates and Associated Physician Practices is amultiple site organization consisting of ambulatory clinics and hospital sitesin [place], [place], [place] and [place]. This disclosure is being madepursuant to the Care Everywhere program and may not contain all information available regarding this patient. Last updated 18.[facility] Social History Tobacco Use Types Packs/Day Years Used Date Smoking Tobacco: Never Assessed Comments Unknown Sex and Gender Information Value Date Recorded Sex Assigned at Not on file 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 DESIGN COORDINATOR Gender Identity Not on file Sexual Orientation [...]
== END 2025-04-22 06:49 | disposition home or self-care (01) ==
PROVIDERS: PCP Family Medicine; Visit Provider Podiatrist
DX: S92.12 Fracture of body of talus (principal); X58.XXXD Exposure to other specified factors, subsequent encounter
CPT/HCPCS: 73700

== ENCOUNTER 2025-05-04 08:57 | Outpatient (CLI) | payer MEDICARE, SELFPAY ==
--- NOTE | ~2025-05-04 | XR_ITS ---
EXAMINATION: XR knee RT min 4V, 05/04/2025 9:00 CDT HISTORY: M25.561 - Pain in right knee COMPARISON: No comparisons available. Findings: No acute fracture or malalignment. Severe tricompartmental degenerative changes with small effusion. Soft tissues unremarkable. Impression: No acute fracture or malalignment. Reviewed, dictated and finalized at location A. Impression: No acute fracture or malalignment.
--- OUTSIDE RECORDS SUMMARY | 2025-05-04 09:29 | XMS_ITS | Encounter Summary ---
Author Organization [facility] Address [address] [place] [address] Care Team Providers Care Slps Name Role Phone Unavailable Primary Care Provider Unavailabl e Encounter Details Date Type Department Care Team (Late st Contact Info) Description 10/12/2020 Lab Requisition [facility] DermPath Lab [address] [facility], [facility] [place] [address] Zina Latham DO [address] [facility] [address] [place] [address] Social History Tobacco Use Types Packs/Day Years Used Date Smoking Tobacco: Never Assessed Comments Unknown Sex and Gender Information Value Date Recorded Sex Assigned at Not on file 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 Gender Identity Not on file Sexual Orientation Not on file documented as of this encounter Plan of Treatment Not on file documented as of this encounter Procedures Procedure Name Priority Date/Time Associated Diagnosis Comments DERMATOPATHOLOGY Routine 10/11/2000 12:0 0 AM 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 documented in this encounter Results * DERMATOPATHOLOGY (10/11/2000 12:00 AM 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) Case Report Dermatopathology Report Case: [id number] Authorizing Provider: Zina Latham DO Collected: 10/11/2000 12:00 AM Ordering Location: [facility] Care DermPath Lab Received: 10/12/2020 10:15 AM Pathologist: Manju Damico MD Specimen: Skin, right posterior upper extremity 4:30 PM 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 DERMATOPATHOLOGY LABORATORY Final Diagnosis Specimen A. 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 The specimen consists of a shave biopsy measuring 9x8x3 mm. Jar 0. 4:30 PM [facility] DERMATOPATHOLOGY LABORATORY Microscopic Description Specimen A. SKIN, right posterior upper extremity: The epidermis is acanthotic and shows full thickness disorderly maturation of keratinocytes, mitoses at different levels, and dyskeratotic cells. There is overlying parakeratosis and hyperkeratosis. 4:30 PM [facility] DERMATOPATHOLOGY LABORATORY Disclaimer An external and internal positive and negative controls are appropriate for the histochemical, immunohistochemical and immunofluorescence stain(s) in this case (if any), except where stated explicitly. The performance characteristics of the stain(s) cited in this report were developed and its performance characteristic determined by the Dermatopathology Laboratory at [facility], directed by Dr. Sindy Damico. These tests need not be, and therefore are not, approved by the [place] Food and Drug Administration. The tests are used for clinical purposes. Billing Codes Specimen Charges Stain Charges 00387 1 4:30 PM [facility] DERMATOPATHOLOGY LABORATORY Embedded Images 4:30 PM [facility] DERMATOPATHOLOGY LABORATORY Pathology/Cytolog y TISSUE SPECIMEN FROM SKIN / Unknown 10/11/2000 10/12/2020 10:15 AM [facility] us Zina Latham DO LAB - PATHOLOGY/CYTOLOGY ORDERABLES Final Result DERMATOPATHOLOGY LABORATORY [facility] - Department of Dermatology [address], [address] [phone] documented in this encounter Visit Diagnoses Not on filedocumented in this encounter
--- OUTSIDE RECORDS SUMMARY | 2025-05-04 09:29 | XMS_ITS | Clinical Summary ---
Author Organization [facility] Address [address] [place] [address] Care Team Providers Care Instrument Mechanic Weapons System Name Role Phone Elliot Chino MD Primary Care Provider Westley Fairbanks MD Unavailable [phone] Allergies Active Allergy Reactions Criticality Noted Date [...] of both eyes 09/11/2024 Assessment & Plan (04/30/2025 11:43 AM CDT): Cont pfats as needed and lid wipes Assessment & Plan (10/23/2024 11:44 AM CDT): Signs improved on Xdemvy Complete weekly 6 of treatment Cont lid wipes daily - or OK to use cloth and baby shampoo PFATs during the day q2 hr Prefers no ointment, recommend TheraTears gel night time drops Assessment & Plan (09/11/2024 10:24 AM SHOP CLERK): Cont gentle lid wipes daily Stop moxi Severe obesity 05/06/2024 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 Pt ed. Stressed BG control (HbA1C<7) to reduce the risk for diabetic ocular complications. Assessment & Plan (01/29/2023 2:54 PM CDT): Diagnosed 10/03- on po meds Needs yearly exam. No acitve diabetes mellitus (DM) changes in retina. 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 Follow. Assessment & Plan (11/13/2024 11:16 AM CDT): Release updated glasses Rx Assessment & Plan (06/28/2023 4:00 PM SHOP CLERK): Fairly significant change from hab Rx, pt [...] 12/06/2014 Assessment & Plan (09/11/2024 10:22 AM SHOP CLERK): PFATs QID+ Assessment & Plan (06/24/2024 10:44 AM SHOP CLERK): ATs prn Assessment & Plan (01/30/2024 1:17 PM CDT): Rec Retaine pfats QID+ Assessment & Plan (08/17/2020 3:49 PM SHOP CLERK): Poor tear film and mild exophoria causing [...] Encounters Date Type Department Care Team Description 04/30/2025 9:15 AM CDT Office Visit [facility] [address] [facility] [address] [facility] [address] [place] [address] Abigail Adair, OD Type 2 diabetes mellitus without complication, without long-term current use of insulin (HCC) (Primary Dx); Squamous blepharitis of upper and lower eyelids of both eyes 03/11/2025 Telephone [facility] [address] [place] [address] Yajaira Leon MA 03/10/2025 11:15 AM CDT Office Visit [facility] Sleep Medicine at [address] [place] [address] Fely Hernandez MD Insomnia, unspecified type (Primary [...] on file Legal Sex Female 2:01 PM SHOP CLERK Gender Identity Female 02/01/2020 1:01 PM CDT [...] Lipid Panel 1945 Hepatitis B Screening 1965 Well Visit 65+ 2012 Fall Risk Assessment 01/15/2023 01/15/2022 Pneumococcal vaccine 65+ (3 of 3 - PCV20 or PCV21) 05/26/2023 05/26/2018, 08/30/2016, 07/23/2012 Covid-19 Vaccine (4 - 2024-2 6 season) 2025 06/07/2021, 10/26/2020, 10/05/2020 Influenza Vaccine (#1) 2025 , 06/08/2022, 06/28/2021, Additional history exists Dilated Eye Exam 04/30/2026 04/30/2025, , 01/29/2023, Additional history exists DTaP/Tdap/Td Vaccine (3 - Td or Tdap) 04/07/2035 04/07/2025, 08/30/2016, 07/23/2012 Colon Cancer Screening-CT Colonography Discontinued 03/23/2015 Colon Cancer Screening-Colonoscopy Discontinued 03/23/2015 Colon Cancer Screening-DNA Stool Discontinued 03/23/20 15 Colon Cancer Screening-FIT Discontinued 03/23/2015 Colon Cancer Screening-FOBT Discontinued 03/23/2015 Colon Cancer Screening-Sigmoidoscopy Discontinued 03/23/2015 Colorectal Cancer Screening Discontinued Zoster Vaccine Completed 08/06/2023, 04/24/2023 Medical Devices Implanted Type Area Emotional Support Teacher Device Identifier Shelf Expiration Date Model / Serial / Lot [employer] Lens Iol Tecnis Smplcty 1-Pc Clr [place] 22.0 Diopter [id number] - [id number] - [id number] Implanted:Qty: 1 on 01/15/2022 by Taya Spear MD at [facility] Lens Right: Eye [employer] [id number] 10/29/2024 [id number] / [id number] / Procedures Procedure Name Priority Date/Time Associated Diagnosis Comments COLONOSCOPY REPORT 03/23/2015 from Last 3 Months or Most Recently Relevant to Health Maintenance Results * COLONOSCOPY REPORT (03/23/2015) Anatomical Region Laterality Modality Other Narrative 03/23/2015 Ordered by an unspecified provider. us Historical Provider GI PROCEDURE ORDERABLES F inal Result from Last 3 Months or Most Recently Relevant to Health Maintenance Insurance MEDICARE [facility] Address: [facility] [address] [place] [address] A[employer] SENIOR SUPPLEMENT MEDICARE [facility] SENIOR SUPPLEMENT MEDICARE AET[employer] SENIOR SUPPLEMENT Advance Directives For more information, please contact: [phone] Documents on File Type Date Recorded Patient Managing Member Expl anation ADVANCE DIRECTIVE 01/18/2022 6:55 AM ADVANCE DIRECTIVE 01/18/2022 6:12 AM POWER OF CLERICAL TRANSCRIBER-MEDICAL Care Teams Instrument Mechanic Weapons System Relationship Specialty Start Date End Date Elliot Chino MD PCP - General Family Practice 01/26/19 Westley Fairbanks MD [address] [place] [address] Galley Boy Internal Medicine 09/11/24
--- OUTSIDE RECORDS SUMMARY | 2025-05-04 09:29 | XMS_ITS | Encounter Summary ---
Author Organization [facility] Address [address] [address] Care Team Providers Care Pipe Organ Technician Name Role Phone Josh Silver Primary Care Provider [phone] Unknown, Notinfile Primary Care Provider Unavail able Josh Silver Primary Care Provider [phone] Unknown, Filipponfile Primary Care Provider Unavail able Josh Silver Primary Care Provider [phone] Elliot Chino MD Primary Care Provider Westley Fairbanks MD Unavailable [phone] Encounter Details Date Type Department Care Team (Late st Contact Info) Description 12/18/2016 Orders Only [facility] ProviderChristie MD [address] [place] [address] Social History Tobacco Use Types Packs/Day Years Used Date Smoking Tobacco: Never Comments Unknown Sex and Gender Information Value Date Recorded Sex Assigned at Not on file 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 Gender Identity Female 02/01/2020 1:01 PM CDT [...] on filedocumented in this encounter Care Teams Pipe Organ Technician Relationship Specialty Start Date End Date Josh Silver [address] [place], [place] [id number] PCP - General 12/25/16 03/11/17 Unknown, Notinfile PCP - General 03/12/17 04/24/17 Josh Silver [address] [place], [place] [id number] PCP - General 04/25/17 04/25/17 Unknown, Notinfile PCP - General 04/26/17 05/05/17 Josh Silver [address] [facility] [place] [place] [address] PCP - General 05/06/17 01/25/19 Elliot Chino MD PCP - General Family Practice 01/26/19 Westley Fairbanks MD [address] [address] Link Knitting Machine Operator Internal Medicine 09/11/24 documented as of this encounter
--- OUTSIDE RECORDS SUMMARY | 2025-05-04 09:29 | XMS_ITS | Encounter Summary ---
Author Organization [facility] Address [address] [place] [address] Care Team Providers Care Rating Specialist Name Role Phone Unavailable Primary Care Provider Unavailabl e Encounter Details Date Type Department Care Team (Late st Contact Info) Description 01/16/2023 Lab Requisition [facility] - DermPath Lab [address] [facility] [place] [address] Zina Latham DO [address] [facility] [address] [place] [address] Social History Tobacco Use Types Packs/Day Years Used Date Smoking Tobacco: Never Assessed Comments Unknown Sex and Gender Information Value Date Recorded Sex Assigned at Not on file 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 Gender Identity Not on file Sexual Orientation Not on file documented as of this encounter Plan of Treatment Not on file documented as of this encounter Procedures Procedure Name Priority Date/Time Associated Diagnosis Comments DERMATOPATHOLOGY Routine 01/16/2023 9:55 AM CDT documented in this encounter Results * DERMATOPATHOLOGY (01/16/2023 9:55 AM CDT) Case Report Dermatopathology Report Case: [id number] Authorizing Provider: Zina Latham DO Collected: 01/16/2023 09:55 AM Ordering Location: [facility] DermPath Lab Received: 01/16/2023 03:22 PM Pathologist: [...] specimen consists of a shave biopsy measuring 9h2u5ho. Jar 0. 3 1:02 PM CDT DERMATOPATHOLOGY [...] determined by the Dermatopathology Laboratory at [facility], directed by Dr. Sindy Damico. These tests need not be, and therefore are not, approved by the [place] Food and Drug Administration. The tests are used for clinical purposes. Billing Codes Specimen Charges Stain Charges 55091 1 3 1:02 PM CDT DERMATOPATHOLOGY LABORATORY Embedded Images 3 1:02 PM CDT DERMATOPATHOLOGY LABORATORY Pathology/Cytolo gy TISSUE SPECIMEN FROM SKIN / Unknown 01/16/2023 9:55 AM CDT 01/16/2023 3:22 PM CDT us Zina Latham DO LAB - PATHOLOGY/CYTOLOGY ORDERABLES Final Result DERMATOPATHOLOGY LABORATORY [facility] - Department of Dermatology [address] [place] [address], [facility] [phone] documented in this encounter Visit Diagnoses Not on filedocumented in this encounter
--- OUTSIDE RECORDS SUMMARY | 2025-05-04 09:29 | XMS_ITS | Encounter Summary ---
Author Organization [facility] Address [address] [place] [address] Care Team Providers Care Lens Assistant Name Role Phone Unavailable Primary Care Provider Unavailabl e Encounter Details Date Type Department Care Team (Late st Contact Info) Description 11/18/2023 Lab Requisition [facility] - DermPath Lab [address] [facility], [place] [phone] Zina Latham DO [address] [facility] 3 [place] [address] Social History Tobacco Use Types Packs/Day Years Used Date Smoking Tobacco: Never Assessed Comments Unknown Sex and Gender Information Value Date Recorded Sex Assigned at Not on file 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 Gender Identity Not on file Sexual Orientation Not on file documented as of this encounter Plan of Treatment Not on file documented as of this encounter Procedures Procedure Name Priority Date/Time Associated Diagnosis Comments DERMATOPATHOLOGY Routine 11/18/2023 2:17 PM CDT documented in this encounter Results * DERMATOPATHOLOGY (11/18/2023 2:17 PM CDT) Case Report Dermatopathology Report Case: [id number] Authorizing Provider: Zina Latham DO Collected: 11/18/2023 02:17 PM Ordering Location: [facility] - Received: 11/19/2023 01:24 PM [...] by the Dermatopathology Laboratory at [facility], directed by Dr. Sindy Damico. These tests need not be, and therefore are not, approved by the [place] Food and Drug Administration. The tests are used for clinical purposes. Billing Codes Specimen Charges Stain Charges 98504 1 3:00 PM CDT DERMATOPATHOLOGY LABORATORY Embedded Images 3:00 PM CDT DERMATOPATHOLOGY LABORATORY Pathology/Cytolo gy TISSUE SPECIMEN FROM SKIN / Unknown 11/18/2023 2:17 PM CDT 11/19/2023 1:24 PM CDT us Zina Latham DO LAB - PATHOLOGY/CYTOLOGY ORDERABLES Final Result DERMATOPATHOLOGY LABORATORY [facility] - Department of Dermatology [address] [place] [address], [facility] [phone] documented in this encounter Visit Diagnoses Not on filedocumented in this encounter
--- OUTSIDE RECORDS SUMMARY | 2025-05-04 09:29 | XMS_ITS | Encounter Summary ---
Author Organization [facility] Address [address] [facility] [place] [address] Care Team Providers Care Red Hat Linux Engineer Name Role Phone Unavailable Primary Care Provider Unavailabl e Encounter Details Date Type Department Care Team (Late st Contact Info) Description 10/24/2020 Lab Requisition 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 DermPath Lab Received: 10/24/2020 10:44 AM Pathologist: [...] SCCIS, verrucous-hypertrop hic type, biopsy proven. See [id number] 12:27 PM CDT DERMATOPATHOLOGY LABORATORY Gross Description Specimen A: Received is one formalin filled container labeled with the patient's name and designated right posterior upper extremity. The specimen consists of a non-oriented ellipse of skin measuring 87m66p3 mm. The epidermal surface estuardo a macule [...] determined by the Dermatopathology Laboratory at [facility], directed by Dr. Sindy Damico. These tests need not be, and therefore are not, approved by the [place] Food and Drug Administration. The tests are used for clinical purposes. Billing Codes Specimen Charges Stain Charges 16437 1 12:27 PM CDT DERMATOPATHOLOGY LABORATORY Embedded Images 12:27 PM CDT DERMATOPATHOLOGY LABORATORY Pathology/Cytolog y TISSUE SPECIMEN FROM SKIN / Unknown 10/24/2020 10/24/2020 10:44 AM CDT us Zina Latham DO LAB - PATHOLOGY/CYTOLOGY ORDERABLES Final Result DERMATOPATHOLOGY LABORATORY [facility] - Department of Dermatology [facility] [address] [place] [address], [address] [phone] documented in this encounter Visit Diagnoses Not on filedocumented in this encounter
--- OUTSIDE RECORDS SUMMARY | 2025-05-04 09:29 | XMS_ITS | Clinical Summary ---
Author Organization [facility] Address [address] [place] [address] Care Team Providers Care Training And Development Rep Name Role Phone Unavailable Primary Care Provider Unavailabl e Source Comments [facility],non-owned Affiliates and Associated Physician Practices is amultiple site organization consisting of ambulatory clinics and hospital sitesin [place], [place], [place] and [place]. This disclosure is being madepursuant to the Care Everywhere program and may not contain all information available regarding this patient. 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
== END 2025-05-04 08:58 | disposition home or self-care (01) ==
PROVIDERS: PCP Family Medicine; Visit Provider Orthopaedic Surgery
DX: M25.561 Pain in right knee (principal)
CPT/HCPCS: 73564

== ENCOUNTER 2025-06-01 08:47 | Outpatient (CLI) | payer MEDICARE, SELFPAY ==
--- NOTE | ~2025-06-01 | XR_ITS ---
XR hand LT min 3V 06/01/2025 09:19 Indication: Left hand pain Procedure: 3 views left hand Comparison: No prior studies for comparison. Findings: There is polyarticular osteoarthritis. Degenerative changes most advanced at the first carpometacarpal joint. Osteopenia. No acute fracture, subluxation or dislocation. No soft tissue abnormality. No foreign bodies. Impression: 1: No acute bone or joint abnormality. Reviewed, dictated and finalized at location O. Impression: 1: No acute bone or joint abnormality.
--- NOTE | ~2025-06-01 | XR_ITS ---
EXAMINATION: XR knee LT min 4V, 06/01/2025 9:00 CDT HISTORY: M25.562 - Pain in left knee COMPARISON: No comparisons available. Findings: No acute fracture or malalignment. Moderate tricompartmental degenerative changes Soft tissues unremarkable. Impression: No acute fracture or malalignment. Reviewed, dictated and finalized at location P. Impression: No acute fracture or malalignment.
--- OUTSIDE RECORDS SUMMARY | 2025-06-01 09:28 | XMS_ITS | Encounter Summary ---
Author Organization [facility] Address [address] [facility] [place] [address] Care Team Providers Care Animal Trainer Supervisor Name Role Phone Unavailable Primary Care Provider Unavailabl e Encounter Details Date Type Department Care Team (Late st Contact Info) Description 01/16/2023 Lab Requisition [facility] - DermPath Lab [address] [facility], [place] [phone] Zina Latham DO [address] [facility] 3 [place] [address] Social History Tobacco Use Types Packs/Day Years Used Date Smoking Tobacco: Never Assessed Comments Unknown Sex and Gender Information Value Date Recorded Sex Assigned at Not on file 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 Gender Identity Not on file Sexual Orientation Not on file documented as of this encounter Plan of Treatment Not on file documented as of this encounter Procedures Procedure Name Priority Date/Time Associated Diagnosis Comments DERMATOPATHOLOGY Routine 01/16/2023 9:55 AM CDT documented in this encounter Results * DERMATOPATHOLOGY (01/16/2023 9:55 AM CDT) Case Report Dermatopathology Report Case: [id number] Authorizing Provider: Zina Latham DO Collected: 01/16/2023 09:55 AM Ordering Location: [facility] DermPath Lab Received: 01/16/2023 03:22 [...] specimen consists of a shave biopsy measuring 6m3c4da. Jar 0. 3 1:02 PM CDT DERMATOPATHOLOGY [...] characteristic determined by the Dermatopathology Laboratory at [facility], directed by Dr. Sindy Damico. These tests need not be, and therefore are not, approved by the [place] Food and Drug Administration. The tests are used for clinical purposes. Billing Codes Specimen Charges Stain Charges 78937 1 3 1:02 PM CDT DERMATOPATHOLOGY LABORATORY Embedded Images 3 1:02 PM CDT DERMATOPATHOLOGY LABORATORY Pathology/Cytolo gy TISSUE SPECIMEN FROM SKIN / Unknown 01/16/2023 9:55 AM CDT 01/16/2023 3:22 PM CDT us Zina Latham DO LAB - PATHOLOGY/CYTOLOGY ORDERABLES Final Result DERMATOPATHOLOGY LABORATORY [facility] - Department of Dermatology [address] [place] [address], [facility] [phone] documented in this encounter Visit Diagnoses Not on filedocumented in this encounter
--- OUTSIDE RECORDS SUMMARY | 2025-06-01 09:28 | XMS_ITS | Encounter Summary ---
Author Organization [facility] Address [address] [place] [place] [address] Care Team Providers Care Family Therapist Name Role Phone Unavailable Primary Care Provider Unavailabl e Encounter Details Date Type Department Care Team (Late st Contact Info) Description 11/18/2023 Lab Requisition [facility] - DermPath Lab [address] [facility], [place] [phone] Zina Latham DO [address] [facility] [address] [place] [address] Social History Tobacco Use Types Packs/Day Years Used Date Smoking Tobacco: Never Assessed Comments Unknown Sex and Gender Information Value Date Recorded Sex Assigned at Not on file 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 Gender Identity Not on file Sexual Orientation Not on file documented as of this encounter Plan of Treatment Not on file documented as of this encounter Procedures Procedure Name Priority Date/Time Associated Diagnosis Comments DERMATOPATHOLOGY Routine 11/18/2023 2:17 PM CDT documented in this encounter Results * DERMATOPATHOLOGY (11/18/2023 2:17 PM CDT) Case Report Dermatopathology Report Case: [id number] Authorizing Provider: Zina Latham DO Collected: 11/18/2023 02:17 PM Ordering Location: [facility] - Received: 11/19/2023 01:24 PM [...] characteristic determined by the Dermatopathology Laboratory at [facility], directed by Dr. Sindy Damico. These tests need not be, and therefore are not, approved by the [place] Food and Drug Administration. The tests are used for clinical purposes. Billing Codes Specimen Charges Stain Charges 72320 1 3:00 PM CDT DERMATOPATHOLOGY LABORATORY Embedded Images 3:00 PM CDT DERMATOPATHOLOGY LABORATORY Pathology/Cytolo gy TISSUE SPECIMEN FROM SKIN / Unknown 11/18/2023 2:17 PM CDT 11/19/2023 1:24 PM CDT us Zina Latham DO LAB - PATHOLOGY/CYTOLOGY ORDERABLES Final Result DERMATOPATHOLOGY LABORATORY [facility] - Department of Dermatology [address] [place] [address], [facility] [phone] documented in this encounter Visit Diagnoses Not on filedocumented in this encounter
--- OUTSIDE RECORDS SUMMARY | 2025-06-01 09:28 | XMS_ITS | Encounter Summary ---
Author Organization [facility] Address [address] [facility] [place] [address] Care Team Providers Care Light Out Examiner Name Role Phone Unavailable Primary Care Provider Unavailabl e Encounter Details Date Type Department Care Team (Late st Contact Info) Description 10/12/2020 Lab Requisition [facility] DermPath Lab [address] [facility], [facility] [place] [address] Zina Latham DO [address] [facility] [address] [place] [address] Social History Tobacco Use Types Packs/Day Years Used Date Smoking Tobacco: Never Assessed Comments Unknown Sex and Gender Information Value Date Recorded Sex Assigned at Not on file 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 Gender Identity Not on file Sexual Orientation Not on file documented as of this encounter Plan of Treatment Not on file documented as of this encounter Procedures Procedure Name Priority Date/Time Associated Diagnosis Comments DERMATOPATHOLOGY Routine 10/11/2000 12:0 0 AM PLASTER APPLICATOR documented in this encounter Results * DERMATOPATHOLOGY (10/11/2000 12:00 AM PLASTER APPLICATOR) Case Report Dermatopathology Report Case: [id number] Authorizing Provider: Zina Latham DO Collected: 10/11/2000 12:00 AM Ordering Location: [facility] Care DermPath Lab Received: 10/12/2020 10:15 AM Pathologist: Manju Damico MD Specimen: Skin, right posterior upper extremity 4:30 PM PLASTER APPLICATOR DERMATOPATHOLOGY LABORATORY Final Diagnosis Specimen A. 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 The specimen consists of a shave biopsy measuring 9x8x3 mm. Jar 0. 4:30 PM [facility] DERMATOPATHOLOGY LABORATORY Microscopic Description Specimen A. SKIN, right posterior upper extremity: The epidermis is acanthotic and shows full thickness disorderly maturation of keratinocytes, mitoses at different levels, and dyskeratotic cells. There is overlying parakeratosis and hyperkeratosis. 4:30 PM [facility] DERMATOPATHOLOGY LABORATORY Disclaimer An external and internal positive and negative controls are appropriate for the histochemical, immunohistochemical and immunofluorescence stain(s) in this case (if any), except where stated explicitly. The performance characteristics of the stain(s) cited in this report were developed and its performance characteristic determined by the Dermatopathology Laboratory at [facility], directed by Dr. Sindy Damico. These tests need not be, and therefore are not, approved by the [place] Food and Drug Administration. The tests are used for clinical purposes. Billing Codes Specimen Charges Stain Charges 13236 1 4:30 PM [facility] DERMATOPATHOLOGY LABORATORY Embedded Images 4:30 PM [facility] DERMATOPATHOLOGY LABORATORY Pathology/Cytolog y TISSUE SPECIMEN FROM SKIN / Unknown 10/11/2000 10/12/2020 10:15 AM [facility] us Zina Latham DO LAB - PATHOLOGY/CYTOLOGY ORDERABLES Final Result DERMATOPATHOLOGY LABORATORY [facility] - Department of Dermatology [address], [address] [phone] documented in this encounter Visit Diagnoses Not on filedocumented in this encounter
--- OUTSIDE RECORDS SUMMARY | 2025-06-01 09:28 | XMS_ITS | Clinical Summary ---
Author Organization [facility] Address [address] [place] [address] Care Team Providers Care Dish Up Person Name Role Phone Unavailable Primary Care Provider Unavailabl e Source Comments [facility],non-owned Affiliates and Associated Physician Practices is amultiple site organization consisting of ambulatory clinics and hospital sitesin [place], [place], [place] and [place]. This disclosure is being madepursuant to the Care Everywhere program and may not contain all information available regarding this patient. 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
--- OUTSIDE RECORDS SUMMARY | 2025-06-01 09:28 | XMS_ITS | Encounter Summary ---
Author Organization [facility] Address [address] [facility] [place] [address] Care Team Providers Care Construction Inspector Name Role Phone Unavailable Primary Care Provider Unavailabl e Encounter Details Date Type Department Care Team (Late st Contact Info) Description 10/24/2020 Lab Requisition [facility] DermPath Lab [address] 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 Gender Identity Not on file Sexual Orientation Not on file documented as of this encounter Plan of Treatment Not on file documented as of this encounter Procedures Procedure Name Priority Date/Time Associated Diagnosis Comments DERMATOPATHOLOGY Routine 10/24/2020 12:0 0 AM CDT documented in this encounter Results * DERMATOPATHOLOGY (10/24/2020 12:00 AM CDT) Case Report Dermatopathology Report Case: [id number] Authorizing Provider: Zina Latham DO Collected: 10/24/2020 12:00 AM Ordering Location: [facility] DermPath Lab Received: 10/24/2020 10:44 AM Pathologist: Hilad Mccall MD Specimen: Skin, right posterior upper extremity 12:27 PM CDT DERMATOPATHOLOGY LABORATORY Final Diagnosis Specimen A. 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 See [id number] 12:27 PM CDT DERMATOPATHOLOGY LABORATORY Gross Description Specimen A: Received is one formalin filled container labeled with the patient's name and designated right posterior upper extremity. The specimen consists of a non-oriented ellipse of skin measuring 25t16l4 mm. The epidermal surface estuardo a macule [...] determined by the Dermatopathology Laboratory at [facility], directed by Dr. Sindy Damico. These tests need not be, and therefore are not, approved by the [place] Food and Drug Administration. The tests are used for clinical purposes. Billing Codes Specimen Charges Stain Charges 10066 1 12:27 PM CDT DERMATOPATHOLOGY LABORATORY Embedded Images 12:27 PM CDT DERMATOPATHOLOGY LABORATORY Pathology/Cytolog y TISSUE SPECIMEN FROM SKIN / Unknown 10/24/2020 10/24/2020 10:44 AM CDT us Zina Latham DO LAB - PATHOLOGY/CYTOLOGY ORDERABLES Final Result DERMATOPATHOLOGY LABORATORY [facility] - Department of Dermatology [facility] Specialized Medicine [address] [place] [address], [address] [phone] documented in this encounter Visit Diagnoses Not on filedocumented in this encounter
== END 2025-06-01 08:48 | disposition home or self-care (01) ==
LOC: CHSIMG 08:49
PROVIDERS: PCP Family Medicine; Visit Provider Orthopaedic Surgery
DX: M25.562 Pain in left knee (principal); M79.642 Pain in left hand
CPT/HCPCS: 73130; 73564